=== PATIENT | female | born 1950 | race Caucasian/White ===

== ENCOUNTER → 2016-07-18 | Outpatient (CLI) | payer BC ==
[~2016-07-18] MED LIST: ALPR0.25 PO; ALUMSUS21 PO; CLR10 PO; FLUT0.15 NAE; INDA1TAB3 PO; LOSA50TA6 PO; OMEP40CA41 PO; RANI300T2 PO; ZCR40 PO
[2016-07-18 12:05] LABS: BASO % 0.4 %; BASO ABS # 0.02 K/uL (0-0.2); COMPLETE YES; EOS % 2.2 %; HEMATOCRIT 40.1 % (37-47); IG% 0.4 %; LYMPH % 25.5 %; LYMPH ABS # 1.39 K/uL (1.2-3.4); MEAN CELL VOLUME 87.2 fL (80-100); MEAN CORPUSCULAR HEMOGLOBIN 28.7 pg (25-34); MEAN CORPUSCULAR HGB CONC 32.9 g/dl (32-36); MEAN PLATELET VOLUME 9.8 fL (7.4-10.4); MONO % 3.9 %; NEUT % 67.6 %; PLATELET COUNT 231 K/uL (130-400); WHITE BLOOD COUNT 5.45 K/uL (4.8-10.8)
[2016-07-18 12:21] LABS: ALT/SGPT 31 U/L (12-78); AST/SGOT 27 U/L (15-37); BLOOD UREA NITROGEN 21 mg/dl (7-18); BUN/CREATININE RATIO 21.4 (10-20); CALCIUM 8.9 mg/dl (8.5-10.1); CARBON DIOXIDE 31 mmol/L (21-32); CHLORIDE 107 mmol/L (98-107); CHOLESTEROL 159 mg/dl (0-200); GLUCOSE 87 mg/dl (70-99); POTASSIUM 3.7 mmol/L (3.5-5.1); SODIUM 143 mmol/L (136-145)
[2016-07-18 12:23] LABS: CHOLESTEROL/HDL RATIO 3.2; HDL CHOLESTEROL 50 mg/dl; LDL CHOLESTEROL CALCULATED 79 mg/dl; TRIGLYCERIDES 149 mg/dl (0-150); VERY LOW DENSITY LIPOPROT CALC 30 mg/dl
[2016-07-18 13:08] LABS: ESTIMATED AVERAGE GLUCOSE 117 mg/dl; HA1C FLAG Normal (Normal)
== END | disposition home or self-care (01) ==
LOC: C.LAB1850 10:20
PROVIDERS: ATTEND Physician Assistant
DX: Z11.59 Encounter for screening for other viral diseases (principal); E78.00 Pure hypercholesterolemia, unspecified; R73.9 Hyperglycemia, unspecified

== ENCOUNTER → 2016-12-07 | Outpatient (CLI) | payer BC ==
--- NOTE | 2016-12-07 14:05 | MAMMOGRAPHY REPORT ---
BILATERAL DIGITAL SCREENING MAMMOGRAM WITH CAD: 12/07/2016 CLINICAL HISTORY: Routine screening. TECHNIQUE: Current study was also evaluated with a Computer Aided Detection (CAD) system. Bilateral CC and MLO views were obtained. COMPARISON: Comparison is made to exams dated: 12/07/2015 mammogram, 12/03/2014 mammogram, 11/29/2012 ma mmogram, 12/02/2013 mammogram, 11/29/2011 mammogram - [facility], and 01/28/2007. BREAST COMPOSITION: There are scattered areas of fibroglandular density in both breasts. FINDINGS: No suspicious masses, calcifications, or areas of architectural distortion are noted in ei ther breast. There has been no significant interval change compared to prior exams. IMPRESSION: ACR BI-RADS CATEGORY 1: NEGATIVE There is no mammographic evidence of malignancy. A 1 year screening mammogram is recommended. The pa tient will receive written notification of the results. Approximately 10% of breast cancers are not detected with mammography. A negative mammographic report should not delay biopsy if a clinically suggestive mass is present. Unique Gibbons M.D. ah/:12/07/2016 10:53:39 Medical Services Manager: Hair BARROS(R)(M), [facility] letter sent: Normal 1/2 BI-RADS Code: ACR BI-RADS Category 1: Negative
== END | disposition home or self-care (01) ==
LOC: C.MAMM 10:19
PROVIDERS: ATTEND Obstetrics & Gynecology
DX: Z12.31 Encounter for screening mammogram for malignant neoplasm of breast (principal)

== ENCOUNTER → 2017-01-11 | Outpatient (CLI) | payer BC ==
[2017-01-11 09:42] LABS: BASO % 0.6 %; BASO ABS # 0.03 K/uL (0-0.2); COMPLETE YES; EOS % 4.8 %; HEMATOCRIT 39.2 % (37-47); IG% 0.2 %; LYMPH % 23.6 %; LYMPH ABS # 1.18 K/uL (1.2-3.4); MEAN CELL VOLUME 90.7 fL (80-100); MEAN CORPUSCULAR HEMOGLOBIN 29.2 pg (25-34); MEAN CORPUSCULAR HGB CONC 32.1 g/dl (32-36); MEAN PLATELET VOLUME 9.7 fL (7.4-10.4); MONO % 9.2 %; NEUT % 61.6 %; PLATELET COUNT 222 K/uL (130-400); RED BLOOD COUNT 4.32 M/uL (4.2-5.4); WHITE BLOOD COUNT 5.01 K/uL (4.8-10.8)
[2017-01-11 09:51] LABS: ESTIMATED AVERAGE GLUCOSE 114 mg/dl; HA1C FLAG Normal (Normal)
[2017-01-11 10:17] LABS: ALT/SGPT 24 U/L (12-78); BLOOD UREA NITROGEN 19 mg/dl (7-18); BUN/CREATININE RATIO 21.1 (10-20); CARBON DIOXIDE 30 mmol/L (21-32); CHLORIDE 107 mmol/L (98-107); CHOLESTEROL 148 mg/dl (0-200); GLUCOSE 86 mg/dl (70-99); POTASSIUM 3.4 mmol/L (3.5-5.1); SODIUM 143 mmol/L (136-145); TRIGLYCERIDES 125 mg/dl (0-150); VERY LOW DENSITY LIPOPROT CALC 25 mg/dl
[2017-01-11 10:27] LABS: AST/SGOT 19 U/L (15-37); CHOLESTEROL/HDL RATIO 3.2; HDL CHOLESTEROL 46 mg/dl; LDL CHOLESTEROL CALCULATED 77 mg/dl
== END | disposition home or self-care (01) ==
LOC: C.LAB1850 08:48
PROVIDERS: ATTEND Physician Assistant
DX: E78.00 Pure hypercholesterolemia, unspecified (principal); R73.9 Hyperglycemia, unspecified

== ENCOUNTER → 2017-04-03 | Outpatient (CLI) | payer BC | END | disposition home or self-care (01) | LOC: C.MAMM 08:52 | PROVIDERS: ATTEND Obstetrics & Gynecology | DX: Z13.820 Encounter for screening for osteoporosis (principal) ==

== ENCOUNTER → 2017-07-26 | Outpatient (CLI) | payer BC ==
[2017-07-26 12:20] LABS: BASO % 0.3 %; BASO ABS # 0.02 K/uL (0-0.2); EOS ABS # 0.18 K/uL (0-0.5); HEMATOCRIT 40.2 % (37-47); HEMOGLOBIN 13.3 g/dL (12.0-16.0); IG# 0.03 K/uL (0.00-0.02); LYMPH % 22.1 %; LYMPH ABS # 1.31 K/uL (1.2-3.4); MEAN CELL VOLUME 89.1 fL (80-100); MEAN CORPUSCULAR HEMOGLOBIN 29.5 pg (25-34); MEAN CORPUSCULAR HGB CONC 33.1 g/dl (32-36); MONO % 4.9 %; MONO ABS # 0.29 K/uL (0.11-0.59); NEUT % 69.2 %; NEUT ABS # 4.09 K/uL (1.4-6.5); PLATELET COUNT 227 K/uL (130-400); RED CELL DISTRIBUTION WIDTH CV 14.3 % (11.5-14.5); WHITE BLOOD COUNT 5.92 K/uL (4.8-10.8)
[2017-07-26 12:29] LABS: HEMOGLOBIN A1C 5.6 % (4.5-5.6)
[2017-07-26 12:42] LABS: ALT/SGPT 29 U/L (12-78); AST/SGOT 21 U/L (15-37); BLOOD UREA NITROGEN 22 mg/dl (7-18); CALCIUM 9.1 mg/dl (8.5-10.1); CARBON DIOXIDE 29 mmol/L (21-32); CHOLESTEROL 178 mg/dl (0-200); CREATININE 1.08 mg/dl (0.60-1.20); GLUCOSE 95 mg/dl (70-99); POTASSIUM 3.6 mmol/L (3.5-5.1); SODIUM 141 mmol/L (136-145)
[2017-07-26 12:53] LABS: LDL CHOLESTEROL CALCULATED 97 mg/dl
== END | disposition home or self-care (01) ==
LOC: C.LAB1850 10:11
PROVIDERS: ATTEND Internal Medicine
DX: E78.00 Pure hypercholesterolemia, unspecified (principal)

== ENCOUNTER → 2017-12-11 | Outpatient (CLI) | payer BC ==
--- NOTE | 2017-12-12 13:38 | MAMMOGRAPHY REPORT ---
BILATERAL DIGITAL SCREENING MAMMOGRAM TOMOSYNTHESIS WITH CAD: 12/11/2017 CLINICAL HISTORY: Routine screening. Patient has no complaints. TECHNIQUE: The study was acquired using full field digital technology and interpreted from soft copy. Breast tomosynthesis in addition to standard 2D mammography was performed. Current study was also ev aluated with a Computer Aided Detection (CAD) system. COMPARISON: Comparison is made to exams dated: 12/07/2016 mammogram, 12/07/2015 mammogram, 12/03/2014 m ammogram, 12/02/2013 mammogram, 11/29/2012 mammogram, and 12/04/2011 mammogram - [facility] nter. BREAST COMPOSITION: There are scattered areas of fibroglandular density in both breasts. FINDINGS: The parenchymal pattern is unchanged. No developing mass, architectural distortion or cluster of susp icious microcalcifications is seen in either breast. IMPRESSION: ACR BI-RADS CATEGORY 2: BENIGN There is no mammographic evidence of malignancy. A 1 year screening mammogram is recommended.( 019) The patient will receive written notification of the results. Some breast cancers are not detected with mammography. A negative mammographic report should not elizabeth y biopsy if a clinically suggestive mass is present. Bharati Forman M.D. ay/:12/11/2017 19:05:33 Assignment Desk Editor: RT Jelena(Veronica)(M)(BD), [facility] letter sent: Normal 1/2 BI-RADS Code: ACR BI-RADS Category 2: Benign
== END | disposition home or self-care (01) ==
LOC: C.MAMM 09:52
PROVIDERS: ATTEND Internal Medicine
DX: Z12.31 Encounter for screening mammogram for malignant neoplasm of breast (principal)

== ENCOUNTER 2021-08-11 06:47 | Observation (INO) ==
--- NOTE | 2021-08-01 10:35 | PAT Medication Instructions ---
Medication Instructions Date of Service August 01, 2021 Home Medications Medication Instructions Recorded simvastatin 40 mg tablet 40 mg PO QPM #90 tab 12/16/20 losartan 50 mg tablet 50 mg PO QAM #90 tab 05/16/21 fluticasone propionate 50 mcg/actuation nasal spray,suspension 2 sprays INTNAS DAILY PRN cholecalciferol (vitamin D3) 25 mcg (1,000 unit) chewable tablet 1,000 units PO QAM Gaviscon 1 tab PO TID cetirizine 10 mg capsule 10 mg PO QPM simvastatin 40 mg tablet 40 mg PO QPM losartan 50 mg tablet 50 mg PO QAM alprazolam 0.25 mg tablet 0.25 mg PO UD PRN cyanocobalamin (vitamin B-12) 1,000 mcg tablet (Vitamin B-12) 1,000 mcg PO QAM indapamide 1.25 mg tablet 1.25 mg PO QAM omeprazole 20 mg capsule,delayed release 20 - 40 mg PO UD PRN DO NOT take the morning of surgery cholecalciferol (vitamin D3) 25 mcg (1,000 unit) chewable tablet 1,000 units PO QAM Gaviscon 1 tab PO TID losartan 50 mg tablet 50 mg PO QAM cyanocobalamin (vitamin B-12) 1,000 mcg tablet (Vitamin B-12) 1,000 mcg PO QAM indapamide 1.25 mg tablet 1.25 mg PO QAM Take morning of surgery With a small sip of water, OTHERWISE NOTHING TO EAT OR DRINK AFTER MIDNIGHT: fluticasone propionate 50 mcg/actuation nasal spray,suspension 2 sprays INTNAS DAILY PRN (if needed) alprazolam 0.25 mg tablet 0.25 mg PO UD PRN (if needed) omeprazole 20 mg capsule,delayed release 20 - 40 mg PO UD PRN (if needed) Take evening before surgery fluticasone propionate 50 mcg/actuation nasal spray,suspension 2 sprays INTNAS DAILY PRN (if needed) Gaviscon 1 tab PO TID cetirizine 10 mg capsule 10 mg PO QPM simvastatin 40 mg tablet 40 mg PO QPM alprazolam 0.25 mg tablet 0.25 mg PO UD PRN (if needed) omeprazole 20 mg capsule,delayed release 20 - 40 mg PO UD PRN (if needed) Other Notes If you have any questions please call us at [phone] or [phone] or [phone] or [phone]
--- NOTE | 2021-08-02 14:06 | Anesthesiology Consultation ---
Date of Service August 02, 2021 Assessment & Plan (1) Encounter for pre-operative examination: Chart Review Chart Review: Acceptable Risk for Surgery (pending surgeon ordered PCP clearance and preop Covid testing results ) and Patient seen in Pre Admission Testing -Awaiting final PCP clearance - seen 07/22/21 (note still not signed off- possibly waiting for preop testing) Pt with egg allergy Per PAT appt on 08/02/21, patient denies any recent travel or large group activities. No known Covid positive exposures or Covid related symptoms. No known Covid infection in the past 90 days. Pt is vaccinated for Covid. Preop Covid testing scheduled 08/08/21 = will await results. Educated on importance of self quarantining, social distancing and wearing mask in public for the patient one week prior to surgery and after Covid testing done Teaching & Discussion Pre-Anesthesia Teaching/Discussion Notes: Instructed NPO after midnight before surgery,except medications with 15 cc of water. Medication instructions provided according to the [facility] guidelines. History Surgery Operation Date: 08/11/21 08:50 Proposed Procedures p RIght Total Hip Arthroplasty - Michael Zamudio MD Height/Weight Height: 5 ft 6 in Weight: 93.6 kg Allergies Allergy/AdvReac Type Severity Reaction Status Date / Time latex Allergy Unknown RASH Verified 08/02/21 13:55 Sulfa (Sulfonamide Allergy Unknown RASH Verified 08/01/21 09:38 Antibiotics) egg AdvReac Severe TINGLING Verified 08/01/21 09:38 MOUTH, SEVERE NAUSEA, stomach cramps banana AdvReac Unknown Nausea Verified 08/01/21 09:38 broccoli AdvReac Unknown GI SYMPTOMS Verified 08/01/21 09:38 cat dander AdvReac Unknown CONGESTION Verified 08/01/21 09:38 coffee (Coffea arabica) AdvReac Unknown Nausea Verified 08/01/21 09:38 shellfish derived AdvReac Unknown SOME NAUSEA Verified 08/01/21 09:38 Medications Home Medications Medication Instructions Recorded Confirmed Last Taken fluticasone propionate 50 2 sprays INTNAS DAILY PRN 01/03/19 08/01/21 02/21/19 mcg/actuation nasal spray,suspension cholecalciferol (vitamin D3) 25 1,000 units PO QAM 04/10/19 08/01/21 Unknown mcg (1,000 unit) chewable tablet Al hyd-Mg tr-alg ac-sod bicarb 80 1 tab PO TID tab 08/20/19 08/01/21 Unknown mg-14.2 mg chewable tablet (Gaviscon) cetirizine 10 mg capsule 10 mg PO QPM cap 08/29/19 08/01/21 Unknown simvastatin 40 mg tablet 40 mg PO QPM #90 tab 12/16/20 08/01/21 Unknown losartan 50 mg tablet 50 mg PO QAM #90 tab 05/16/21 08/01/21 Unknown alprazolam 0.25 mg tablet 0.25 mg PO UD PRN 08/01/21 08/01/21 Unknown cyanocobalamin (vitamin B-12) 1,000 mcg PO QAM 08/01/21 08/01/21 Unknown 1,000 mcg tablet (Vitamin B-12) omeprazole 20 mg capsule,delayed 20 - 40 mg PO UD PRN 08/01/21 08/01/21 Unknown release indapamide 1.25 mg tablet 1.25 mg PO QAM #90 tab 08/02/21 Unknown Past Medical History Medical History 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 12 Claustrophobia Can tolerate oxygen mask GERD (gastroesophageal reflux disease) Well controlled and stable History of anesthesia reaction - WITH C/S- WAS DONE UNDER GA - NO ISSUES WITH SURGERY- IN RECOVERY AREA- COULD HEAR EVERYTHING GOING ON AND COULDN'T MOVE - WAS HYPERVENTILATING -HAS HAD SUBSEQUENT SURGERIES WITHOUT ISSUES HTN (hypertension) Hypercholesteremia Left knee pain Knee has given out in the past - does have brace - patient currently doing PT - patient will inform surgeon's office Presence of pessary Pt can remove and replace pessary on her own- patient will remove pessary for surgery. Seasonal allergies Snoring HX SLEEP STUDY, (AROUND 2018) -RESULTS UNKNOWN Varicose veins of both lower extremities S/p vein ligation Exercise / Class Metabolic Activity II 4-5 Yardwork/Stairs/Walk up hill (ONE FLIGHT OF STAIRS - NO CHEST PAIN OR SOB ) Past Family History Family History Brother Family history of diabetes mellitus Grandmother (Maternal) Family history of diabetes mellitus Past Surgical History Surgical History History of section X 1 History of colonoscopy History of dilatation and curettage History of esophagogastroduodenoscopy (EGD) History of ligation of vein LEFT History of tooth extraction Past Anesthesia History No Hx of Anesthesia Complications (with exception to post op (see PMH)) and No Family Hx of Anesthesia Complications History of PONV No Hx of PONV and No Hx of Motion Sickness Social History Smoking Status: Never smoker Do You Dip or Chew Tobacco: No Hx Alcohol Use: No Hx Substance Use: No substance use type: does not use Review of Systems Occ palpitations - only with anxiety - improved with yoga and mediation Occ snoring- no recent issues - no witnessed apnea. Patient denies chest pain, shortness of breath, dyspnea on exertion, cough, wheezing. No hx of seizures, stroke, IN. No hx of blood clots or blood transfusions Physical Exam Vital Signs VITALS BP 109/74 P 86 TEMP 97.8 SP02 95% RESP 16 Constitutional no acute distress ENMT Mouth: no TMJ clicking Thyromental Distance: < 3.5 Finger Breadths (3.0) Mallampati Class: I Top teeth have veneers Permanent bridges and implants on side teeth Neck neck extension not limited Respiratory normal respiratory effort; no respiratory distress Auscultation: lungs clear to auscultation bilaterally; no wheezes Cardiovascular Rate/Rhythm: regular rate and regular rhythm Heart Sounds: no murmur Vessels: no carotid bruit Musculoskeletal Spine: no pain with cervical ROM Extremities: extremities normal to inspection Psychiatric Orientation: alert Lab Results Anesthesia Preop Results Results Anesthesia Widget: WBC 7.73 K/uL (4.8-10.8) 08/02/21 Hgb 13.3 g/dL (12.0-16.0) 08/02/21 Hct 40.8 % (37-47) 08/02/21 Plt 257 K/uL (130-400) 08/02/21 Na 142 mmol/L (136-145) 08/02/21 K 3.2 mmol/L (3.5-5.1) L 08/02/21 Cl 104 mmol/L (98-107) 08/02/21 CO2 31 mmol/L (21-32) 08/02/21 BUN 16 mg/dl (6-23) 08/02/21 Creat 1.11 mg/dl (0.6-1.2) 08/02/21 Glucose Level 131 mg/dl (70-99(Fasting)) H 08/02/21 PT 10.9 Seconds (9.0-12.0) 08/02/21 PTT 29.7 Seconds (21.0-31.0) 08/02/21 INR 1.0 (0.9-1.1) 08/02/21 HA1c 5.8 % (4.5-5.6) H 08/02/21 Urine Color Yellow 08/03/21 Urine Appearance Clear (Clear) 08/03/21 Urine pH 6.0 (4.5-7.5) 08/03/21 Urine Specific Wilmot 1.009 (1.000-1.030) 08/03/21 Urine Protein Negative (Negative) 08/03/21 Urine Glucose (UA) Negative (Negative) 08/03/21 Urine Ketones Negative (Negative) 08/03/21 Urine Blood Negative (Negative) 08/03/21 Urine Nitrite Negative (Negative) 08/03/21 Urine Bilirubin Negative (Negative) 08/03/21 Urine Urobilinogen Negative (Negative) 08/03/21 Urine Leukocyte Esterase 2+ (Negative) H 08/03/21 Urine WBC (Auto) 5-10 /hpf (0-5) H 08/03/21 Urine RBC (Auto) 0-4 /hpf (0-4) 08/03/21 Urine Hyaline Casts (Auto) 1-5 /lpf (0-5) 08/03/21 Urine Epithelial Cells (Auto) 20-30 /lpf (0-5) H 08/03/21 Urine Bacteria (Auto) Negative (Negative) 08/03/21 Blood Type A Positive 08/02/21 Antibody Screen NEGATIVE 08/02/21 Testing Electrocardiogram Date: 08/02/21 Findings: + NSR @ (76bpm ) Normal EKG per cardio Other Testing Carotid duplex 05/26/2021 = <50% stenosis in the right and left internal carotid arteries. Antegrade flow bilateral vertebral arteries.
--- NOTE | 2021-08-03 15:50 | History & Physical Report ---
Date of Service August 03, 2021 Assessment & Plan (1) Osteoarthritis of right hip: Plan: PRE-OP Diagnosis: Right hip osteoarthritis Planned Procedure: Right total hip arthroplasty Plan: Patient is scheduled to undergo this procedure at the [facility] with a 23-hour observation admission on July with Dr. Michael Kingsley off. Risks and complications of the procedure such as: Infection, bleeding, pain, scarring, nerve blood vessel damage, weakness, wound problems, stiffness, incomplete relief of symptoms, hardware failure, hardware loosening, wear, fracture, tendon or ligament injury, dislocation, leg length inequality, blood clots, embolism, heart attack, stroke and were explained to the patient at her visit with Dr. Zamudio on July 19 and informed consent form the procedure was obtained. Patient also understands risks of proceeding with surgical intervention during the COVID-19 pandemic. Currently she is asymptomatic and understands that she will need tested prior to her surgery. Patient states that she saw her primary care provider Dr. Saunders's Physician gift shop assistant on July 22 was cleared for the surgery. She also states that she met with anesthesia earlier today and while at the hospital she ob tained a CBC with differential, complete metabolic panel, PT/INR, blood type and screen, urinalysis, urine culture and sensitivity, EKG, hemoglobin A1c and a nasal culture for MRSA. During today's visit we discussed total hip precautions and reviewed the total hip packet. I provided the patient with paperwork to obtain a handicap placard for her vehicle. She states that she does have a walker, shower chair, raised toilet seat and a hip kit. She will bring her walker with her on the day of the procedure. We also discussed lectures offered by [facility] in regards to joint replacement surgery. Patient states she plans on partaking in the one on the sunday of this month. We also discussed antibiotic use prior to dental procedures. Advised her that she will be discharged from the hospital with a prescription for her narcotic pain medication and an anti-inflammatory. We would like her to be on 81 mg aspirin twice daily for the first 30 days postoperatively for blood clot prevention. Patient states she plans on doing in-home physical therapy for the first 2 weeks postoperatively with [facility] home [facility]. She is scheduled for her 2-week postoperative follow-up visit with Ted Guiterrez PA-C on August 26 at 8:45 AM. History of Present Illness Chief Complaint: Chief Complaint: Right hip pain Primary Care Provider: Vita Saunders MD History of Present Illness (including history relevant to procedure): This 70-year-old female presents the clinic today for preoperative history and physical. Patient states that her hip has been bothering her for approximately 1 year. She had a fall about a year ago that seemed to be an inciting event. It has worsened since that time. It bothers her walking, especially uphill. She has tried physical therapy. She has worked with a chiropractor. She has tried cold and heat as well as nonsteroidal antiinflammatories. These have all failed to give her adequate relief. She is now interested in surgical management. Review Of Systems: A 12 point review of systems is performed is unremarkable except for those things stated in the HPI and past medical history. Past Medical History: Problems: Left knee DJD Left knee pain Closed fracture of metatarsal of left foot Vitamin D deficiency Incomplete uterovaginal prolapse Reflux Rash Hypertension Back pain Seasonal allergies Hyperlipidemia History of foot fracture Anxiety Hiatal hernia Obesity Procedure History Procedure Procedure Date Comments Colonoscopy 02/2019 Endovenous laser ablation of varicose vein of lower limb 12/2018 Shave biopsy and cauterization of skin 01/08/2018 Endoscopy 10/2014 D&C - Dilatation and curettage 2000 - fibroids delivery 1983 Allergies and Sensitivities: bananas(stomach cramps) eggs(stomach cramps) eggs(diarrhea) eggs(emesis) Allergy Not found in Search(broccoli, coffee,) Allergy Not found in Search(stomach cramps) Cats Ragweed(sinus symptoms) sulfa drugs(Rash) Family history: Heart disease, myocardial infarction, diabetes, stroke, cancer and hypertension Social history: completely unremarkable Current Home Meds: (Last Updated 08/02 15:07) ALPRAZolam (Xanax 0.5 mg oral tablet) 0.5 mg PO Daily PRN: as needed for anxiety for dentist aloe polysaccharides-iodoquinol topical (Aloquin 1.25%-1% topical gel) 1 appl topical qid aluminum hydroxide-magnesium trisilicate (Gaviscon) 2 tab PO with meals cetirizine (ZyrTEC 10 mg oral tablet) 10 mg PO Daily ergocalciferol (Vitamin D2 50,000 intl units (1.25 mg) oral capsule) 50,000 Int_Unit PO q7days fluticasone nasal (Flonase 50 mcg/inh nasal spray) 1 spray each nostril Daily in summer hydrocortisone topical (hydrocortisone 2.5% topical ointment) 1 appl topical bid apply to periorbital dermatitis until clear and then as needed; use for up to 10 days hydrocortisone-iodoquinol topical (hydrocortisone-iodoquinol 1%-1% topical cream) 1 appl topical Daily apply to dermatitis on the chest and abdomen until clear and then use as needed indapamide (indapamide 1.25 mg oral tablet) 1.25 mg PO Daily losartan (losartan 50 mg oral tablet) 50 mg PO Daily omeprazole (PriLOSEC 20 mg oral delayed release capsule) 20 mg PO Daily simvastatin (simvastatin 40 mg oral tablet) 40 mg PO qhs sodium hyaluronate (Euflexxa 10 mg/mL intra-articular solution) 20 mg intra- articular q7days m17.12 left knee AO triamcinolone topical (triamcinolone 0.1% topical cream) 1 appl topical tid to aa on left arm Allergies Allergy/AdvReac Type Severity Reaction Status Date / Time latex Allergy Unknown RASH Verified 08/02/21 13:55 Sulfa (Sulfonamide Allergy Unknown RASH Verified 08/01/21 09:38 Antibiotics) egg AdvReac Severe TINGLING Verified 08/01/21 09:38 MOUTH, SEVERE NAUSEA, stomach cramps banana AdvReac Unknown Nausea Verified 08/01/21 09:38 broccoli AdvReac Unknown GI SYMPTOMS Verified 08/01/21 09:38 cat dander AdvReac Unknown CONGESTION Verified 08/01/21 09:38 coffee (Coffea arabica) AdvReac Unknown Nausea Verified 08/01/21 09:38 shellfish derived AdvReac Unknown SOME NAUSEA Verified 08/01/21 09:38 Home Medications Medication Instructions Recorded Confirmed Type fluticasone propionate 50 2 sprays INTNAS DAILY PRN 01/03/19 08/01/21 History mcg/actuation nasal spray,suspension cholecalciferol (vitamin D3) 25 1,000 units PO QAM 04/10/19 08/01/21 History mcg (1,000 unit) chewable tablet Al hyd-Mg tr-alg ac-sod bicarb 80 1 tab PO TID tab 08/20/19 08/01/21 History mg-14.2 mg chewable tablet (Gaviscon) cetirizine 10 mg capsule 10 mg PO QPM cap 08/29/19 08/01/21 History simvastatin 40 mg tablet 40 mg PO QPM #90 tab 12/16/20 08/01/21 Rx losartan 50 mg tablet 50 mg PO QAM #90 tab 05/16/21 08/01/21 Rx alprazolam 0.25 mg tablet 0.25 mg PO UD PRN 08/01/21 08/01/21 History cyanocobalamin (vitamin B-12) 1,000 mcg PO QAM 08/01/21 08/01/21 History 1,000 mcg tablet (Vitamin B-12) omeprazole 20 mg capsule,delayed 20 - 40 mg PO UD PRN 08/01/21 08/01/21 History release indapamide 1.25 mg tablet 1.25 mg PO QAM #90 tab 08/02/21 Rx 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 12 Claustrophobia Can tolerate oxygen mask GERD (gastroesophageal reflux disease) Well controlled and stable History of anesthesia reaction - WITH C/S- WAS DONE UNDER GA - NO ISSUES WITH SURGERY- IN RECOVERY AREA- COULD HEAR EVERYTHING GOING ON AND COULDN'T MOVE - WAS HYPERVENTILATING -HAS HAD SUBSEQUENT SURGERIES WITHOUT ISSUES HTN (hypertension) Hypercholesteremia Left knee pain Knee has given out in the past - does have brace - patient currently doing PT - patient will inform surgeon's office Presence of pessary Pt can remove and replace pessary on her own- patient will remove pessary for surgery. Seasonal allergies Snoring HX SLEEP STUDY, (AROUND 2019) -RESULTS UNKNOWN Varicose veins of both lower extremities S/p vein ligation Surgical History History of section X 1 History of colonoscopy History of dilatation and curettage History of esophagogastroduodenoscopy (EGD) History of ligation of vein LEFT History of tooth extraction Family History Brother Family history of diabetes mellitus Grandmother (Maternal) Family history of diabetes mellitus Social History Smoking Status: Never smoker Second Hand Exposure: Yes ( A CHILD); Hx Alcohol Use: No Hx Substance Use: No Preferred Language: Bolivian Communication Ability: Effective Tipple Oiler Required: No Beliefs That Will Affect Care: None and Anabaptist Anabaptist Beliefs: JAINISM Current Living Situation: Spouse Feels Safe at Home: Yes Assistive Devices: Brace/Splint/Immobilizer Review of Systems All systems reviewed & are unremarkable except as noted in Subjective Physical Exam Physical Exam: Physical Exam: (relevant to the procedure, including heart and lung evaluation) General: Alert and oriented x3 with proper grooming and hygiene Eyes: Pupils are equal and reactive to light with accommodation. Extraocular movements are intact Throat: Deferred due to COVID-19 precautions Cardiac: Regular rate and rhythm with no murmurs or gallops appreciated Lungs: Clear to auscultation throughout with no wheezing, rales or rhonchi Abdomen: Obese, nondistended, nontender with normal active bowel sounds Extremities: Right hip; flexion Is limited to 105 degrees, external rotation 40 degrees, and internal rotation of -5 degrees. Positive Stinchfield test. Positive logroll test. Tenderness to palpation over the groin. Patient is neurovascularly intact but does walk with a slight antalgic gait. Neuro: Cranial nerves II through XII are intact no motor or sensory deficit Skin: Normal in appearance no open skin areas or discharge Results & Data ([facility]) Diagnostic Findings Studies (relevant to the procedure): X-rays done recently are reviewed. These demonstrate [id number] arthritis of the right hip with subchondral sclerosis and cyst formation.
[~2021-08-11 06:47] MED LIST changes: +ACETAMINOPHEN 500 MG TAB PO SCH; -ALPR0.25 PO; -ALUMSUS21 PO; +BUPIVACAINE 0.5 % 5 MG/1 ML PF 10ML VIAL ONE; -CLR10 PO; +FAMOTIDINE 20 MG TAB PO SCH; -FLUT0.15 NAE; -INDA1TAB3 PO; -LOSA50TA6 PO; +LR 500ML BOLUS, THEN 15ML/HR IV SCH; +LR 60ML/HR IV SCH; -OMEP40CA41 PO; -RANI300T2 PO; +ROPIVACAINE 0.5% HCL/PF 150 MG, BUPIVACAINE 0.75% MPF 20 ML, EPINEPHrine 0.15 MG, Ketor... INFIL SCH; +Scopolamine 1 MG TDSY TD SCH; +TRANEXAMIC ACID 1,000 MG **IV Intra-op IV SCH; +TRANEXAMIC ACID 1,000 MG **IV Pre-op IV SCH; -ZCR40 PO; +ceFAZolin 2000MG 2,000 MG/15 ML SYR IV SCH; +dexAMETHasone 4 MG TAB PO SCH; +traMADol HCL 50 MG TABLET PO SCH
[2021-08-11] MEDS ORDERED: PHENYLEPHRINE 100MCG/ML 5ML SYR ONE (07:47)
[2021-08-11] MEDS ORDERED: ePHEDrine sulfate 50 MG/ML SYR ONE (07:47)
[2021-08-11] MEDS ORDERED: MIDAZOLAM HCL 1 MG/ML 2ML VIAL ONE (07:47)
--- NOTE | 2021-08-11 08:32 | History & Physical Bridge Note ---
Date of Service August 11, 2021 History & Physical Bridge Note I have examined the patient, reviewed the History & Physical and in the interval since the performance of the History & Physical I have noted the following changes of clinical significance: no changes noted
[2021-08-11] MEDS ORDERED: ORTHO JOINT ANESTHETIC ONE (08:57)
[2021-08-11] MEDS ORDERED: PROMETHAZINE HCL 12.5 MG in SODIUM CHLORIDE 0.9% 50 ML IV PRN (10:07)
[2021-08-11] MEDS ORDERED: fentaNYL citrate 100 MCG/2 ML VIAL IV PRN (10:07)
[2021-08-11] MEDS ORDERED: HYDROmorphone INJ 1 MG/ML SYRINGE IV PRN (10:07)
[2021-08-11] MEDS ORDERED: ePHEDrine sulfate 50 MG/ML AMP IV PRN (10:07)
[2021-08-11] MEDS ORDERED: ONDANSETRON INJ 2 MG/ML 2 ML VIAL IV PRN ×2 (10:07→11:20)
[2021-08-11] MEDS ORDERED: NALOXONE HCL 0.4 MG/1 ML VIAL/CARP IV PRN ×2 (10:07→11:20)
[2021-08-11] MEDS ORDERED: ATROPINE SULFATE 0.1 MG/ML 10ML SYR IV PRN (10:07)
[2021-08-11] MEDS ORDERED: FLUMAZENIL 0.1 MG/1 ML 10 ML VIAL IV PRN (10:07)
--- NOTE | 2021-08-11 10:55 | Operative Report ---
Post Operative Report Pre & Post Diagnosis Operation Date: 08/11/21 09:10 Pre-Op Diagnosis: Unilateral Primary Osteoarthritis of Right Hip Post-Op Diagnosis: Unilateral Primary Osteoarthritis of Right Hip I identified the patient and participated in the time-out.: Yes Procedure Operation Date: 08/11/21 09:10 Actual Procedures p Right Total Hip Arthroplasty(Right) - Michael Zamudio MD Surgeon Michael Zamudio MD Skate Shop Attendant Jaimee Padilla MD and EDWIN Middleton PA-C Estimated Blood Loss 100 Findings Consistent with Post-Op Diagnosis Specimens Right femoral head Complications None Indications 70-year-old female with right hip arthritis refractory to conservative management. X-rays demonstrate iqpa-rw-aglo disease with a coxa profunda hip. I had a long discussion with her about the risks and benefits of surgery, alternatives, and expected outcomes. After reviewing all these she elected to proceed with surgery. All questions were answered. Informed consent was signed. Description of Procedure Patient was identified in the preoperative holding area and the surgical site, right hip, was marked. A spinal anesthetic was placed, then the patient was brought back to the main operating room, placed in the operating table and moved into the lateral decubitus position. Axillary roll was placed. All bony prominences were padded. Perioperative antibiotics and tranexamic acid 1 gram IV were administered. Operative extremity was prepped and draped in the normal sterile fashion. Prior to incision a multidisciplinary timeout was called. All in the room were in agreement. We began by making an incision for a posterior approach to the hip. We dissected down through subcutaneous tissues to the level of the fascia. She had a thick fat layer, about 3 inches, between the skin and the fascia, so we had to use the Charnley to help retract the fat layer. The fascia was incised in line with the incision. Charnley bow was then placed on the gluteus niki muscle, taking great care to ensure the sciatic nerve was not under the retractor.. The trochanteric bursa was excised. The piriformis and short external rotators were dissected off the posterior aspect of the hip. A box cut was made in the capsule. The femoral head was dislocated. The femoral neck cut was made at our preoperative template. The acetabulum was then exposed. The labrum was sharply excised. Contents of the cotyloid fossa were removed wi th electrocautery. We then began reaming at a size 8 mm less than our preoperative template. We reamed up by 1 [address] the way up to a size 52 mm cup. This gave us good bleeding cancellus bone circumferentially. The acetabulum was then irrigated out and dried. The real Patterson Gription cup was then impacted down into position with 45 degrees of lateral opening and 25 degrees of anteversion. A single cancellous bone screw was placed up into the ilium. Excellent fixation was obtained. An Altrx polyethylene liner for a 32 mm femoral head was then impacted into the shell. The locking mechanism was checked to ensure that it had engaged which it had. Next we turned our attention to the femur. The lateral neck was removed with a box osteotome. Intramedullary guide was used followed by the lateralizing reamer. We then reamed up to a size 4 [place] stem. We then broached all the way up to a size 3, which was our pre-operative template. We began trialing with a standard offset neck and a +5 head. Hip was reduced. Leg lengths were symmetric. The hip was stable in extension and external rotation, and stable in the sleeper position. At 90 degrees of hip flexion the hip could be internally rotated 75 degrees before levering out of the cup. I was very happy with the stability exam. Therefore the hip was dislocated and the femoral trial was removed. The femoral canal was irrigated and dried. The real size 3 standard offset [place] femoral stem was opened up. This was impacted down into position. It sat at the same level as the femoral trial. Therefore the 32 mm ceramic femoral head with a +5 mm offset was opened up and gently impacted down onto the trunnion. The hip was atraumatically reduced. Another 1 gram of IV tranexamic acid was started prior to closure. The wound was irrigated out with sterile Betadine solution. The periarticular injection cocktail was then placed. The short external rotators, piriformis, and posterior capsule were repaired through drill holes in the greater trochanter using #2 Vicryl. The fascia was run with a looped #1 PDS. The subcutaneous layer was closed with #1 PDS in 2 layers. The dermal layer was closed with 2-0 Vicryl. Zip line was used for the skin followed by a Silverlon dressing. A compressive dressing was then placed. The patient was then rolled supine. Leg lengths were rechecked and were symmetric. An abduction pillow was placed. Sedation was lifted and the patient was transferred to recovery room in stable condition. Summary of implants: Depuy Patterson Gription Acetabular Shell Sector Cup, 52 mm outer diameter Patterson Cancellous bone screw, 6.5 x 30 mm Patterson Altrx Polyethylene Acetabular Liner, Neutral, with a 32 mm inner diameter DePuy [place] Femoral stem with Por[place]oat, 12/14 taper, size 3 standard offset 32 mm ceramic femoral head with +5 offset Postoperative course: Patient will be admitted to the hospital from the recovery room. Patient will be weightbearing as tolerated with posterior hip precautions. Aspirin for DVT prophylaxis I attest to the content of the Intraoperative Record and any orders documented therein. Any exceptions are noted below.
[2021-08-11] MEDS ORDERED: PROPOFOL IV EMULSION 10 MG/ML 20 ML VIAL IV ONE (10:57)
[2021-08-11] MEDS ORDERED: LIDOCAINE 2% 2 ML VIAL/AMP(20MG/ML) INFIL ONE (10:58)
--- NOTE | 2021-08-11 11:16 | Operative Report ---
Post Operative Report Pre & Post Diagnosis Operation Date: 08/11/21 09:10 Pre-Op Diagnosis: Unilateral Primary Osteoarthritis of Right Hip Post-Op Diagnosis: Unilateral Primary Osteoarthritis of Right Hip I identified the patient and participated in the time-out.: Yes Procedure Operation Date: 08/11/21 09:10 Actual Procedures p Right Total Hip Arthroplasty(Right) - Michael Zamudio MD Surgeon Olegario Zamudio MD Generator Operator Jaimee Padilla MD and EDWIN Middleton PA-C Estimated Blood Loss 100 Findings Consistent with Post-Op Diagnosis Consistent with post op diagnosis. Specimens No specimens Description of Procedure I participated in prepping dressing and assisted Dr. Zamudio during the procedure. Please see Dr. Zamudio note. I attest to the content of the Intraoperative Record and any orders documented therein. Any exceptions are noted below. Supervising Physician Co-Signing Physician Notes Dr. Zamudio
[2021-08-11] MEDS ORDERED: ALUMINUM/MAGNESIUM SUSP 30 ML UDC PO PRN (11:20)
[2021-08-11] MEDS ORDERED: oxyCODONE HCL IR 5 MG TAB (IMMEDIATE RELEASE) PO PRN (11:20)
[2021-08-11] MEDS ORDERED: diphenhydrAMINE 50 MG/ML VIAL IV PRN (11:20)
[2021-08-11] MEDS ORDERED: MAGNESIUM HYDROXIDE SUSP 30 ML UDC PO PRN (11:20)
[2021-08-11] MEDS ORDERED: METOCLOPRAMIDE HCL INJ 5 MG/ML 2 ML VIAL IV PRN (11:20)
[2021-08-11] MEDS ORDERED: bisacodyL 10 MG SUPP PR PRN (11:20)
--- NOTE | 2021-08-11 11:20 | Operative Report ---
Post Operative Report Pre & Post Diagnosis Operation Date: 08/11/21 09:10 Pre-Op Diagnosis: Unilateral Primary Osteoarthritis of Right Hip Post-Op Diagnosis: Unilateral Primary Osteoarthritis of Right Hip I identified the patient and participated in the time-out.: Yes Procedure Operation Date: 08/11/21 09:10 Actual Procedures p Right Total Hip Arthroplasty(Right) - Michael Zamudio MD Surgeon Michael Zamudio MD Cart Driver Jaimee Padilla MD and EDWIN Middleton PA-C Estimated Blood Loss 100 Findings Consistent with Post-Op Diagnosis Specimens femoral head Description of Procedure I was present during the entire case assisting with positioning, prepping, draping, wound retraction, wound closure, dressing and abduction pillow placemen t. Fellow also present. I served as an extra set of hands during the case. Please see Dr. Zamudio procedure note for specifics. I attest to the content of the Intraoperative Record and any orders documented therein. Any exceptions are noted below.
[2021-08-11] MEDS ORDERED: FLUTICASONE PROPIONATE NA SPR 16 GM BTL NAE PRN (11:24)
[2021-08-11] MEDS ORDERED: ALPRAZolam 0.25 MG TABLET PO PRN (11:24)
[2021-08-11] MEDS ORDERED: PANTOprazole 40 MG TAB PO PRN (11:24)
--- NOTE | 2021-08-11 12:08 | XRay Report ---
XR pelvis 1-2V routine HISTORY: 70 years-old Female Post Surgical right hip total joint arthroplasty COMPARISON: Pelvis radiographs 08/02/2021 TECHNIQUE: AP view of the pelvis FINDINGS: Right hip total joint arthroplasty demonstrates satisfactory alignment. No acute fracture or unexpect ed opaque foreign body. SPECT postoperative soft tissue swelling with deep tissue air. Pelvic basin p hleboliths. Mild to moderate left hip osteoarthritis. IMPRESSION: Right hip total joint arthroplasty with expected postoperative changes. ACT 112: Negative or not required by law. The above report was generated using voice recognition software. It may contain grammatical, syntax o r spelling errors. Electronically signed by: Gabriel Rehman M.D. 08/11/2021 12:06 PM
--- NOTE | 2021-08-11 12:14 | Anesthesiology Progress Note ---
Date of Service August 11, 2021 Anesthesia Post Procedure Vital Signs Vital Signs: Temp Pulse Pulse Resp BP BP Pulse Ox 08/11/21 12:10 69 16 126/81 97 08/11/21 12:00 36.4 C L 61 12 129/81 97 08/11/21 11:50 63 18 119/81 95 08/11/21 11:40 68 14 124/80 98 08/11/21 11:30 67 12 116/86 100 08/11/21 11:20 70 14 110/72 99 08/11/21 11:14 36.2 C L 73 16 106/67 99 08/11/21 07:26 36.7 C 79 20 109/69 96 Transfer of Care Handoff Completed per policy Notes Mental Status: alert / awake / arousable Patient Amnestic to Procedure: Yes Nausea / Vomiting: adequately controlled Pain: adequately controlled Airway Patency, RR, SpO2: stable & adequate BP & HR: stable & adequate Hydration State: stable & adequate Neuraxial Anesthesia: was administered and sensory block is resolving Anesthetic Complications: no major complications apparent
[2021-08-11] MEDS: SODIUM CHLORIDE 0.9% 1000ML 1,000 ML IV SCH (14:02)
[2021-08-11] MEDS: CALCIUM CARBONATE 500 MG CHEWABLE TAB PO SCH ×2 (15:15→20:20)
[2021-08-11] MEDS: KETOROLAC TROMETHAMINE 15 MG/ML VIAL IV SCH ×2 (15:15→20:20)
[2021-08-11] MEDS: Scopolamine CHECK PATCH PLACEMENT SCH (15:18)
[2021-08-11] MEDS: ACETAMINOPHEN 500 MG TAB PO SCH ×2 (15:19→22:17)
[2021-08-11] MEDS: ceFAZolin 2000MG 2,000 MG/15 ML SYR IV SCH (16:39)
[2021-08-11] MEDS: DOCUSATE SODIUM 100 MG CAP PO SCH (20:20)
[2021-08-11] MEDS ORDERED: SIMVASTATIN 40 MG TAB PO SCH (21:00)
[2021-08-11] MEDS ORDERED: CETIRIZINE HCL 10 MG TABLET PO SCH (21:00)
[2021-08-11] MEDS ORDERED: SENNA 8.6 MG TAB PO SCH (21:00)
[2021-08-12] MEDS: SODIUM CHLORIDE 0.9% 1000ML 1,000 ML IV SCH (00:42)
[2021-08-12] MEDS: Scopolamine CHECK PATCH PLACEMENT SCH ×2 (01:38→07:23)
[2021-08-12] MEDS: KETOROLAC TROMETHAMINE 15 MG/ML VIAL IV SCH ×2 (01:39→07:23)
[2021-08-12] MEDS: ceFAZolin 2000MG 2,000 MG/15 ML SYR IV SCH (02:00)
[2021-08-12] MEDS: ACETAMINOPHEN 500 MG TAB PO SCH (06:17)
[2021-08-12 06:39] LABS: Hematocrit (blood only) 34.7 % (37-47); Hemoglobin 11.6 g/dL (12.0-16.0); Immature Granulocytes # (auto) 0.03 K/uL (0.00-0.02); Immature Granulocytes % (auto) 0.2 %; Lymphocytes % (auto) 5.9 %; Mean Corpuscular Hemoglobin 28.9 pg (25-34); Mean Corpuscular Hgb Conc 33.4 g/dL (32-36); Mean Corpuscular Volume 86.3 fL (80-100); Mean Platelet Volume 9.6 fL (7.4-10.4); Monocytes # (auto) 0.77 K/uL (0.11-0.59); Monocytes % (auto) 5.7 %; Neutrophils # (auto) 11.98 K/uL (1.4-6.5); Neutrophils % (auto) 88.2 %; Platelet Count 237 K/uL (130-400); RDW Coefficient of Variation 14.7 % (11.5-14.5); RDW Standard Deviation 46.8 fL (36.4-46.3); Red Blood Count 4.02 M/uL (4.2-5.4); White Blood Count 13.58 K/uL (4.8-10.8)
[2021-08-12 07:18] LABS: BUN Creatinine Ratio 21.4 (10-20); Calcium 8.7 mg/dl (8.5-10.1); Creatinine Clr Calc Pharmacy 55.2 ml/min; Est GFR (African American) 57.6 ml/min; Est GFR (Non-African American) 49.7 ml/min; Potassium 3.7 mmol/L (3.5-5.1)
[2021-08-12] MEDS: CALCIUM CARBONATE 500 MG CHEWABLE TAB PO SCH (07:25)
[2021-08-12] MEDS: DOCUSATE SODIUM 100 MG CAP PO SCH (07:26)
[2021-08-12] MEDS ORDERED: dexAMETHasone 4 MG TAB PO SCH (08:00)
[2021-08-12] MEDS ORDERED: ASPIRIN 81 MG ECTAB PO SCH (09:00)
[2021-08-12] MEDS ORDERED: CYANOCOBALAMIN (B-12) 500 MCG TABLET PO SCH (09:00)
[2021-08-12] MEDS ORDERED: CHOLECALCIFEROL 1,000 UNITS 25 MCG TAB PO SCH (09:00)
[2021-08-12] MEDS ORDERED: LOSARTAN POTASSIUM 50 MG TAB PO SCH (09:00)
[2021-08-12] MEDS ORDERED: INDAPAMIDE 1.25 MG TAB PO SCH (09:00)
[2021-08-12] MEDS ORDERED: MULTIVITAMIN TAB PO SCH (09:00)
--- NOTE | 2021-08-12 09:49 | Orthopedic Progress Note ---
Date of Service August 12, 2021 Assessment & Plan (1) S/P total hip arthroplasty: Plan: Total hip precautions reviewed Weightbearing as tolerated with walker assistance PT/OT Ice with easy wrap DVT prophylaxis with aspirin and CLARK stockings Pain control with p.o. medication Keep Silverlon dressing in place Abduction pillow use for 6 weeks postoperatively Plan is discharge home today with in-home physical therapy starting tomorrow for the first 2 weeks postoperatively Follow-up at [facility] orthopedics as previously scheduled. With questions contact our clinic at [phone] Admission and Anticipated Discharge Date Admission Date: August 11, 2021 Subjective This 70-year-old female is day 1 status post right total hip arthroplasty. She states she is doing very well this morning. She has been able to transition from her bed to the chair and from the chair to the restroom to void. She states that she did have some slight discomfort when she rolled onto her hip to get out of bed but feels that her pain is well controlled with the p.o. pain medication she was given. Patient denies chest pain, shortness of breath, fever, chills, sweats, lethargy, numbness or tingling in her right lower extremity. She also denies nausea, vomiting, diarrhea or difficulty urinating. Review of Systems Review of Systems: All systems reviewed & are unremarkable except as noted in Subjective Physical Exam Physical Exam: Right hip: Outer dressing was removed. Silverlon is clean dry and intact. Patient is able to perform an active straight leg raise test. She is able to actively dorsi and plantarflex her foot without difficulty. Quad strength is 3 out of 5. Patient experiences no pain with logroll test. She has no discomfort with light passive internal and external hip rotation. Patient is neurovascularly intact in the right lower extremity. Results & Data ([facility]) Vital Signs (Past 12 Hours) Vital Signs Temp Pulse Resp BP Pulse Ox 08/12/21 07:29 36.5 C 65 14 120/82 93 08/12/21 04:06 36.9 C 64 17 120/81 92 08/11/21 23:19 36.7 C 69 17 109/72 92 Diagnostic Findings Laboratory Results WBC 13.58 K/uL (4.8-10.8) H 08/12/21 06:23 RBC 4.02 M/uL (4.2-5.4) L 04/22/22 06:23 Hgb 11.6 g/dL (12.0-16.0) L 08/12/21 06:23 Hct 34.7 % (37-47) L 08/12/21 06:23 MCV 86.3 fL (80-100) 08/12/21 06:23 MCH 28.9 pg (25-34) 08/12/21 06: MCHC 33.4 g/dL (32-36) 08/12/21 06:23 RDW Std Deviation 46.8 fL (36.4-46.3) H 08/12/21 06:23 RDW Coeff of Adela 14.7 % (11.5-14.5) H 08/12/21 06:23 Plt Count 237 K/uL (130-400) 08/12/21 06:23 MPV 9.6 fL (7.4-10.4) 08/12/21 06:23 Immature Gran % (Auto) 0.2 % 08/12/21 06:23 Neut % (Auto) 88.2 % 08/12/21 06:23 Lymph % (Auto) 5.9 % 08/12/21 06:23 [place] % (Auto) 5.7 % 08/12/21 06:23 Eos % (Auto) 0.0 % 08/12/21 06: Baso % (Auto) 0.0 % 08/12/21 06:23 Neut # (Auto) 11.98 K/uL (1.4-6.5) H 08/12/21 06:23 Lymph # (Auto) 0.80 K/uL (1.2-3.4) L 08/12/21 06:23 [place] # (Auto) 0.77 K/uL (0.11-0.59) H 08/12/21 06:23 Eos # (Auto) 0.00 K/uL (0-0.5) 08/12/21 06:23 Baso # (Auto) 0.00 K/uL (0-0.2) 08/12/21 06:23 Immature Gran # (Auto) 0.03 K/uL (0.00-0.02) H 08/12/21 06:23 Sodium 141 mmol/L (136-145) 08/12/21 06:23 Potassium 3.7 mmol/L (3.5-5.1) 08/12/21 06:23 Chloride 108 mmol/L (98-107) H 08/12/21 06:23 Carbon Dioxide 27 mmol/L (21-32) 08/12/21 06:23 Anion Gap 6 (3-11) 08/12/21 06:23 BUN 24 mg/dl (6-23) H 08/12/21 06:23 Creatinine 1.12 mg/dl (0.6-1.2) 08/12/21 06:23 Est Cr Clr Drug Dosing 55.2 ml/min 08/12/21 06:23 Est GFR ( Amer) 57.6 ml/min 08/12/21 06:23 Est GFR (Non-Af Amer) 49.7 ml/min 08/12/21 06:23 BUN/Creatinine Ratio 21.4 (10-20) H 08/12/21 06:23 Glucose 127 mg/dl (70-99(Fasting)) H 08/12/21 06:23 Calcium 8.7 mg/dl (8.5-10.1) 08/12/21 06:23 SARS-CoV-2, RNA, NAAT NEGATIVE (NEGATIVE) 08/11/21 Unknown Impressions Pelvis X-Ray 08/11/21 11:20 XR pelvis 1-2V routine HISTORY: 70 years-old Female Post Surgical right hip total joint arthroplasty COMPARISON: Pelvis radiographs 08/02/2021 TECHNIQUE: AP view of the pelvis FINDINGS: Right hip total joint arthroplasty demonstrates satisfactory alignment. No acute fracture or unexpected opaque foreign body. SPECT postoperative soft tissue swelling with deep tissue air. Pelvic basin phleboliths. Mild to moderate left hip osteoarthritis. IMPRESSION: Right hip total joint arthroplasty with expected postoperative changes. ACT 112: Negative or not required by law. The above report was generated using voice recognition software. It may contain grammatical, syntax or spelling errors. Electronically signed by: Gabriel Rehman M.D. 08/11/2021 12:06 PM
--- NOTE | 2021-08-12 09:54 | Discharge Summary ---
Date of Service August 12, 2021 Admission HPI Per Admitting Provider History of Present Illness (including history relevant to procedure): This 70-year-old female presents the clinic today for preoperative history and physical. Patient states that her hip has been bothering her for approximately 1 year. She had a fall about a year ago that seemed to be an inciting event. It has worsened since that time. It bothers her walking, especially uphill. She has tried physical therapy. She has worked with a chiropractor. She has tried cold and heat as well as nonsteroidal antiinflammatories. These have all failed to give her adequate relief. She is now interested in surgical man agement. Review Of Systems: A 12 point review of systems is performed is unremarkable except for those things stated in the HPI and past medical history. Past Medical History: Problems: Left knee DJD Left knee pain Closed fracture of metatarsal of left foot Vitamin D deficiency Incomplete uterovaginal prolapse Reflux Rash Hypertension Back pain Seasonal allergies Hyperlipidemia History of foot fracture Anxiety Hiatal hernia Obesity Procedure History Procedure Procedure Date Comments Colonoscopy 02/2019 Endovenous laser ablation of varicose vein of lower limb 12/2018 Shave biopsy and cauterization of skin 01/08/2018 Endoscopy 10/2014 D&C - Dilatation and curettage 2000 - fibroids delivery 1983 Allergies and Sensitivities: bananas(stomach cramps) eggs(stomach cramps) eggs(diarrhea) eggs(emesis) Allergy Not found in Search(broccoli, coffee,) Allergy Not found in Search(stomach cramps) Cats Ragweed(sinus symptoms) sulfa drugs(Rash) Family history: Heart disease, myocardial infarction, diabetes, stroke, cancer and hypertension Social history: completely unremarkable Current Home Meds: (Last Updated 08/02 15:07) ALPRAZolam (Xanax 0.5 mg oral tablet) 0.5 mg PO Daily PRN: as needed for anxiety for dentist aloe polysaccharides-iodoquinol topical (Aloquin 1.25%-1% topical gel) 1 appl topical qid aluminum hydroxide-magnesium trisilicate (Gaviscon) 2 tab PO with meals cetirizine (ZyrTEC 10 mg oral tablet) 10 mg PO Daily ergocalciferol (Vitamin D2 50,000 intl units (1.25 mg) oral capsule) 50,000 Int_Unit PO q7days fluticasone nasal (Flonase 50 mcg/inh nasal spray) 1 spray each nostril Daily in summer hydrocortisone topical (hydrocortisone 2.5% topical ointment) 1 appl topical bid apply to periorbital dermatitis until clear and then as needed; use for up to 10 days hydrocortisone-iodoquinol topical (hydrocortisone-iodoquinol 1%-1% topical cream) 1 appl topical Daily apply to dermatitis on the chest and abdomen until clear and then use as needed indapamide (indapamide 1.25 mg oral tablet) 1.25 mg PO Daily losartan (losartan 50 mg oral tablet) 50 mg PO Daily omeprazole (PriLOSEC 20 mg oral delayed release capsule) 20 mg PO Daily simvastatin (simvastatin 40 mg oral tablet) 40 mg PO qhs sodium hyaluronate (Euflexxa 10 mg/mL intra-articular solution) 20 mg intra- articular q7days m17.12 left knee AO triamcinolone topical (triamcinolone 0.1% topical cream) 1 appl topical tid to aa on left arm Admission Exam Per Admitting Provider Physical Exam: (relevant to the procedure, including heart and lung evaluation) General: Alert and oriented x3 with proper grooming and hygiene Eyes: Pupils are equal and reactive to light with accommodation. Extraocular movements are intact Throat: Deferred due to COVID-19 precautions Cardiac: Regular rate and rhythm with no murmurs or gallops appreciated Lungs: Clear to auscultation throughout with no wheezing, rales or rhonchi Abdomen: Obese, nondistended, nontender with normal active bowel sounds Extremities: Right hip; flexion Is limited to 105 degrees, external rotation 40 degrees, and internal rotation of -5 degrees. Positive Stinchfield test. Positive logroll test. Tenderness to palpation over the groin. Patient is neurovascularly intact but does walk with a slight antalgic gait. Neuro: Cranial nerves II through XII are intact no motor or sensory deficit Skin: Normal in appearance no open skin areas or discharge Principal Diagnosis Right hip osteoarthritis Discharge Exam Right hip: Outer dressing was removed. Silverlon is clean dry and intact. Patient is able to perform an active straight leg raise test. She is able to actively dorsi and plantarflex her foot without difficulty. Quad strength is 3 out of 5. Patient experiences no pain with logroll test. She has no discomfort with light passive internal and external hip rotation. Patient is neurovascularly intact in the right lower extremity. Discharge Data Allergies Allergy/AdvReac Type Severity Reaction Status Date / Time latex Allergy Unknown RASH Verified 08/11/21 07:32 Sulfa (Sulfonamide Allergy Unknown RASH Verified 08/11/21 07:32 Antibiotics) egg AdvReac Severe TINGLING Verified 08/11/21 07:32 MOUTH, SEVERE NAUSEA, stomach cramps banana AdvReac Unknown Nausea Verified 08/11/21 07:32 broccoli AdvReac Unknown GI SYMPTOMS Verified 08/11/21 07:32 cat dander AdvReac Unknown CONGESTION Verified 08/11/21 07:32 coffee (Coffea arabica) AdvReac Unknown Nausea Verified 08/11/21 07:32 shellfish derived AdvReac Unknown SOME NAUSEA Verified 08/11/21 07:32 Procedures Performed Operation Date: 08/11/21 09:10 Actual Procedures p Right Total Hip Arthroplasty(Right) - Michael Zamudio MD Hospital Course (1) S/P total hip arthroplasty: Patient had an uneventful overnight stay following right total hip arthroplasty. She is doing very well this morning. She is planning on going home today around lunchtime. She is set up with in-home physical therapy starting tomorrow morning. This will be for the first 2 weeks postoperatively. Patient is very pleased with the results of her surgery and states that she has very minimal pain at present. Total hip precautions reviewed Weightbearing as tolerated with walker assistance PT/OT Ice with easy wrap DVT prophylaxis with aspirin and CLARK stockings Pain control with p.o. medication Keep Silverlon dressing in place Abduction pillow use for 6 weeks postoperatively Plan is discharge home today with in-home physical therapy starting tomorrow for the first 2 weeks postoperatively Follow-up at [facility] orth[facility] as previously scheduled. With questions contact our clinic at [phone] Total Time Total Time Spent Total Time Spent (In Minutes): 20 minutes Discharge Plan Discharge Items Patient Disposition: Home - Home Health Services Reason For Visit: Unilateral Primary Osteoarthritis of Right Hip Discharge Diagnosis: Right hip osteoarthritis Activity: Per Instructions section Lifting: None Bathing: Keep incision dry Bathing Comment: may shower tomorrow Sexual Activity: Wait until after follow-up appointment Exercise/Sports: None Driving/Machine Use: No driving until cleared by orthopedics Weightbearing: Right weightbearing Weightbearing Comment: as tolerated with walker assistance Non-emergency contact: Surgeon Call non-emergency contact if: you have any medication questions, your symptoms worsen, your temperature is above 101.5, your wound has increased redness and your wound has increased drainage Follow-up/Referrals: Vita Saunders MD [Primary Care Provider] - Diet: Regular Addtl Attending Provider Instructions: Post-operative Instructions Dear Patient and Family/Friends, Before you are discharged from the hospital, it is important to know what to expect when you get home after surgery. To that end, we have created this sheet of discharge instructions which covers many commonly asked questions. Make sure you go through this sheet in its entirety with your nurse before you are discharged. Please note that we will go over the specifics of your surgery and recovery when you return for your first post-operative visit. Sincerely, Dr. Zamudio Medications 1. Oxycodone 5 mg: take 1-2 tabs every 4-6 hours as needed for pain control. A prescription will be sent to your pharmacy. 2. Aspirin 81 mg: Take this medication twice daily for the first 30 days post operatively for blood clot prevention. Please purchase. 3. Diclofenac Sodium 75 mg: Take 1 tab twice daily for post op pain and inflammation relief. A prescription for this will be sent to your pharmacy with 1 refill. 4. Extra Strength Tylenol 500 mg: take 2 tabs every 6-8 hours for additional pain relief. Please purchase. Pain Expect to be in a fair amount of pain after surgery. Remember, our goal is not to eliminate your pain, but to make it tolerable. It is a good idea to stay ahead of your pain by taking the medications you were prescribed once you get home. Typically, the pain starts improving 3-7 days after surgery. You should start weaning off the narcotic pain medication (oxycodone, hydrocodone, hydromorphone, morphine) as soon as your pain improves. Please call our office if your pain is not adequately controlled. Ice Ice your operative site at least 5 times a day for 15-30 minutes at a time. Make sure you have a thin cloth between the ice or cooling unit and your skin to prevent winston bite. This is especially important if you received a nerve block. Continue icing your operative site for the first 5-7 days after surgery, then as needed. Diet/Nausea/Vomiting Start by drinking clear liquids and eating crackers. If you can tolerate this, then you may resume your normal diet. If you feel nauseated or vomit, take Zofran/ondansetron (if prescribed). Please call our office if you have intractable nausea or vomiting, or, if after hours, you may go to the Emergency Room for help. Constipation Constipation is a common side effect of narcotic pain medication. If you have not had a bowel movement within 2 days after surgery, we recommend purchasing an over the counter laxative such as Milk of Magnesia, Dulcolax, or Miralax from a local pharmacy, and taking it as instructed. Call our clinic if any questions. Nerve block The anesthesia team sometimes places a nerve block to help with post-operative pain control. This results in significant numbness and inability to move the extremity. The nerve block usually wears off in 8-12 hours, but sometimes can last up to 24 hours. Please call our office if you are still unable to move your extremity after 24 hours, unless you received a pain pump to take home. Nerve blocks typically wear off quickly, so start taking pain medication as soon as you start feeling soreness near your surgical site. Weight bearing and Range of Motion. Do not bear any weight through your operative extremity immediately after surgery. If you had upper extremity surgery, do not lift anything with that arm. If you are in a knee brace, keep it locked in place until your follow-up. We will discuss your weight bearing, range of motion, and lifting restrictions in detail at your first post-operative appointment. Continuous Passive Motion (CPM) Machine If you were prescribed a CPM machine, it will start after your first post- operative appointment, at which time we will give you instructions on the range of motion settings and duration of treatment Physical therapy You will be given a prescription for physical therapy or occupational therapy at your first post-operative appointment. Typically, patients start therapy within 1 week of surgery Wound care and showering We will inspect your wound at your first post-operative visit, and may do a dressing change at that time. Most patients will be in a water-proof dressing that is removed 14 days after surgery. It is normal to see some dried blood on the dressing. Do not remove your dressing, paper strips or sutures yourself unless you are given permission. Showering is allowed the day after surgery. Do not scrub or remove any dressings. The wound should not be submerged underwater (i.e. in a bathtub or pool) until 4 weeks after surgery CLARK stockings If you were given white stockings, these are to be worn at all times except to shower (on both legs) for the first 2 weeks after surgery. Driving You may not drive while taking narcotic pain medication or while in a cast, splint, sling or brace. You, the patient, need to make the final determination about when you are safe to drive, however, the earliest you may consider driving after surgery is below: Hand/Wrist/Elbow Surgery: 3 days Shoulder Surgery: 2 weeks Hip,/Knee/Ankle Surgery: 4 weeks Fracture repair: 6 weeks Return to Work Your return to work depends on what surgery was done and what type of work you do. Please bring any paperwork your employer needs completed to your first post-operative visit. Also, bring a description of your job duties, as this helps us to understand what risks you may face at work. Travel Avoid long distance travel (greater than 1 hour) in airplanes and cars for the first 6 weeks after surgery. If you must travel, you need to have a Doppler ultrasound done before you travel to rule out a blood clot in your legs. Follow-up You should have a follow-up appointment already scheduled 1-2 days after surgery. If not, please contact our office to make this appointment before you leave the hospital. When to call the office It is normal to have swelling and bruising in the limb that was operated on. This will improve with time. It is also normal to have fevers for the first 2 days after surgery. Reasons you should call your doctor include: Uncontrolled pain; Nausea, vomiting, or constipation that does not improve with medication; Fevers over 101.5, chills, sweats; Drainage or bleeding from the wound; Foul odor; Spreading areas of redness; Any other concerns Pending Studies at Discharge: No Stand-Alone Forms: My [employer], Smoking Cessation Medications and DC Order Prescriptions: New oxycodone 5 mg tablet 10 mg PO Q4H Qty: 28 RF: 0 diclofenac sodium 75 mg tablet,delayed release (DR/EC) 75 mg PO BID 30 Days Qty: 60 RF: 1 Continued simvastatin 40 mg tablet 40 mg PO QPM Qty: 90 RF: 3 indapamide 1.25 mg tablet 1.25 mg PO QAM Qty: 90 RF: 3 cholecalciferol (vitamin D3) 1,000 unit tablet,chewable 1,000 units PO QAM RF: 0 losartan 50 mg tablet 50 mg PO QAM Qty: 90 RF: 3 fluticasone propionate 50 mcg/actuation spray,suspension 2 sprays INTNAS DAILY PRN (Reason: Congestion) RF: 0 cetirizine 10 mg capsule 10 mg PO QPM RF: 0 Gaviscon 80-14.2 mg tablet,chewable 1 tab PO TID RF: 0 alprazolam 0.25 mg Tablet 0.25 mg PO UD PRN (Reason: PRE DENTAL) RF: 0 cyanocobalamin (vitamin B-12) [Vitamin B-12] 1,000 mcg Tablet 1,000 mcg PO QAM RF: 0 omeprazole 20 mg Capsule,Delayed Release(Dr/Ec) 20 - 40 mg PO UD PRN (Reason: Acid Reflux) RF: 0 Discharge Orders: Discharge Order (Routine); Ordered 08/12/21 Ordered By: Woodrow Middleton Admission Data Admit Date/Time: 08/11/21 11:20 Attending Provider: Michael Zamudio Admit Provider: Michael Zamudio Primary Care Provider: Vita Saunders
== END 2021-08-12 13:09 | disposition home health service (06) ==
LOC: ASU 06:47 → PACUINP 06:47 → 3E 13:40

== ENCOUNTER 2022-01-13 14:08 | Inpatient (IN) ==
[2022-01-13] MEDS ORDERED: diphenhydrAMINE 50 MG/ML VIAL IV STA (15:09)
[2022-01-13] MEDS ORDERED: methylPREDNISolone 60 MG in SYRINGE 1 ML IV STA (15:09)
[2022-01-13 15:21] LABS: Basophils # (auto) 0.03 K/uL (0-0.2); Basophils % (auto) 0.3 %; Eosinophils # (auto) 0.02 K/uL (0-0.50); Eosinophils % (auto) 0.2 %; Hematocrit (blood only) 40.1 % (34.1-44.9); Hemoglobin 13.1 g/dl (12.0-16.0); Immature Granulocytes # (auto) 0.05 K/uL (0.00-0.02); Immature Granulocytes % (auto) 0.5 %; Lymphocytes # (auto) 1.21 K/uL (1.2-3.4); Lymphocytes % (auto) 11.4 %; Mean Corpuscular Hemoglobin 27.7 pg (25.0-34.0); Mean Corpuscular Hgb Conc 32.7 g/dL (32.0-36.0); Mean Corpuscular Volume 84.8 fL (80.0-100.0); Monocytes # (auto) 0.78 K/uL (0.24-0.82); Monocytes % (auto) 7.4 %; Neutrophils # (auto) 8.49 K/uL (1.4-6.5); Neutrophils % (auto) 80.2 %; Platelet Count 258 K/uL (130-400); RDW Standard Deviation 49.8 fL (36.4-46.3); Red Blood Count 4.73 M/uL (3.93-5.22); White Blood Count 10.58 K/ul (4.8-10.8)
[2022-01-13 15:30] LABS: Calcium 9.5 mg/dl (8.5-10.1); Creatinine Clr Calc Pharmacy 60.2 ml/min; Est GFR (African American) 65.6 ml/min; Est GFR (Non-African American) 56.6 ml/min; Potassium 3.4 mmol/L (3.5-5.1)
--- NOTE | 2022-01-13 15:32 | Emergency Department Note ---
Impression & Plan Swelling of throat, Difficulty in swallowing, Hoarseness ED Provider Note NAME: JASON VINES AGE: 71 SEX: F : 1950 ARRIVES VIA: Walk-In INFORMANT: [Patient] ED PROVIDER(S): [Wade Chavarria MD] CHIEF COMPLAINT: Throat pain HISTORY OF PRESENT ILLNESS: The patient is a 71-year-old female who presents to the ER with a hoarse voice and trouble swallowing with moderate throat pain since yesterday after having a dental procedure. During the procedure, she was told that she had a tube in her throat, she was asleep. The patient states that she can drink a few sips of water, nothing else. Her voice is hoarse, she is coughing. She was sent here for evaluation by the dental office that did her procedure. They were working on her right lower jaw. REVIEW OF SYSTEMS: See HPI for pertinent positives and negatives. A total of ten systems were reviewed and were otherwise negative. PMHx/PSHx: See Below SOCIAL HISTORY: See Below. PHYSICAL EXAM: GENERAL: Patient is in no acute distress. HEENT: No acute trauma, normocephalic atraumatic, mucous membranes moist, no nasal congestion, no scleral icterus. No uvular edema or throat erythema. No p osterior pharyngeal swelling noted. The right lower jaw dental work appears to be healing without signs of infection. NECK: No stridor, no adenopathy, no meningismus, trachea is midline. Hoarse voice noted. LUNGS: Clear to auscultation bilaterally, no wheeze, no rhonchi, breath sounds equal. HEART: Without murmurs gallops or rubs, regular rate and rhythm. ABDOMEN: Soft, nontender, bowel sounds positive, no peritonitis. EXTREMITIES: No cyanosis or edema, full range of motion of all the joints w ithout pain or difficulty, no signs for acute trauma. NEUROLOGIC: Oriented x 3, no acute motor or sensory deficits, no focal weakness. SKIN: No rash, no jaundice, no diaphoresis. DIFFERENTIAL DIAGNOSIS: Vocal cord swelling, vocal cord trauma, uvular edema, esophageal swelling, airway narrowing, uvular edema, esophageal tear, pharyngitis, among others. EMERGENCY DEPARTMENT COURSE/PROCEDURES: MEDICAL DECISION MAKING: There is no leukocytosis or concerning anemia. There is a normal platelet count. Potassium slightly low at 3.4. No renal failure. CT of the soft tissue of the neck does show airway edema with some airway compromise. No hematoma, no abscess. The patient was given IV Solu-Medrol and IV Benadryl. She received IV saline. She is given IV Unasyn. Patient received a dose of IV Decadron. I did speak with ENT, Dr. Badillo. Patient was seen by ENT here in the ED. The patient is being admitted to the hospital for steroids, observation and further airway management. I spoke with the patient and case management, the on-call hospitalist has been consulted. 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 12 Claustrophobia Can tolerate oxygen mask GERD (gastroesophageal reflux disease) Well controlled and stable History of anesthesia reaction - WITH C/S- WAS DONE UNDER GA - NO ISSUES WITH SURGERY- IN RECOVERY AREA- COULD HEAR EVERYTHING GOING ON AND COULDN'T MOVE - WAS HYPERVENTILATING -HAS HAD SUBSEQUENT SURGERIES WITHOUT ISSUES HTN (hypertension) Hypercholesteremia Left knee pain Knee has given out in the past - does have brace - patient currently doing PT - patient will inform surgeon's office Metatarsal fracture LEFT FOOT Osteopenia Prediabetes Presence of pessary Pt can remove and replace pessary on her own- patient will remove pessary for surgery. Seasonal allergies Snoring HX SLEEP STUDY, (AROUND 2018) -RESULTS UNKNOWN Varicose veins of both lower extremities S/p vein ligation Surgical History History of section X 1 History of colonoscopy History of dilatation and curettage History of esophagogastroduodenoscopy (EGD) History of ligation of vein LEFT History of tooth extraction Family History Brother Family history of diabetes mellitus Grandmother (Maternal) Family history of diabetes mellitus Social History Smoking Status: Never smoker Second Hand Exposure: Yes ( A CHILD); Hx Alcohol Use: No Hx Substance Use: No Preferred Language: Greek Communication Ability: Effective 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 Beliefs That Will Affect Care: None and Judaism Judaism Beliefs: RESTORATION marital status: Current Living Situation: Spouse Feels Safe at Home: Yes Assistive Devices: Walker Allergies Allergies Allergy/AdvReac Type Severity Reaction Status Date / Time latex Allergy Unknown RASH Verified 01/13/22 18:11 Sulfa (Sulfonamide Allergy Unknown RASH Verified 01/13/22 18:11 Antibiotics) egg AdvReac Severe TINGLING Verified 01/13/22 18:11 MOUTH, SEVERE NAUSEA, stomach cramps banana AdvReac Unknown Nausea Verified 01/13/22 18:11 broccoli AdvReac Unknown GI SYMPTOMS Verified 01/13/22 18:11 cat dander AdvReac Unknown CONGESTION Verified 01/13/22 18:11 coffee (Coffea arabica) AdvReac Unknown Nausea Verified 01/13/22 18:11 shellfish derived AdvReac Unknown SOME NAUSEA Verified 01/13/22 18:11 Home Meds Home Medications Medication Instructions Recorded Confirmed fluticasone propionate 50 2 sprays intranasal DAILY PRN 01/03/19 01/13/22 mcg/actuation nasal Congestion spray,suspension cholecalciferol (vitamin D3) 25 1,000 units PO QAM 04/10/19 01/13/22 mcg (1,000 unit) chewable tablet Al hyd-Mg tr-alg ac-sod bicarb 80 1 tab PO TID PRN Gi Upset 08/20/19 01/13/22 mg-14.2 mg chewable tablet (Gaviscon) cetirizine 10 mg capsule 10 mg PO QPM 08/29/19 01/13/22 cyanocobalamin (vitamin B-12) 1,000 mcg PO QAM 08/01/21 01/13/22 1,000 mcg tablet (Vitamin B-12) aspirin 81 mg tablet,delayed 81 mg PO DAILY 12/20/21 01/13/22 release (Adult Low Dose Aspirin) ibuprofen 200 mg tablet (Advil) 600 - 800 mg PO Q8 PRN Pain 12/20/21 01/13/22 amoxicillin 500 mg capsule 2,000 mg PO DIRECTED 01/13/22 01/13/22 amoxicillin 500 mg capsule 500 mg PO TID 01/13/22 01/13/22 chlorhexidine gluconate 0.12 % 0 ml PO DIRECTED 01/13/22 01/13/22 mouthwash Previous Rx's Medication Instructions Recorded losartan 50 mg tablet 50 mg PO QAM #90 tabs 05/16/21 indapamide 1.25 mg tablet 1.25 mg PO QAM #90 tabs 08/02/21 simvastatin 40 mg tablet 40 mg PO QPM #90 tabs 08/12/21 alprazolam 0.25 mg tablet 0.25 mg PO DAILY PRN 12/20/21 anxiety/claustrophobia related to dental appts #7 tabs metformin 500 mg tablet,extended 500 mg PO BID #180 tabs 12/20/21 release 24 hr Results & Data (ED) Vital Signs Vital Signs - 24 hr 01/13/22 14:20 01/13/22 15:10 01/13/22 14:45 Temperature 37.3 C Temperature Source Oral Pulse Rate 90 70 82 Pulse Rate from SpO2 Sensor 82 Pulse Rhythm Regular Pulse Strength Normal Respiratory Rate 20 19 Respiratory Effort / Characteristics Non-Labored Spontaneous Respiratory Depth Normal Respiratory Pattern Regular Blood Pressure 153/97 H Blood Pressure Mean 115 Blood Pressure Position Sitting Pulse Oximetry 93 99 94 Oxygen Delivery Method Room Air Room Air Sepsis Recent Fever Within 48 Hours No Sepsis New/Unexplained Change in Mental Status No Sepsis Action Taken by Nursing No Action Required 01/13/22 15:00 01/13/22 15:30 01/13/22 16:32 Temperature Temperature Source Pulse Rate 88 86 Pulse Rate from SpO2 Sensor 86 86 Pulse Rhythm Pulse Strength Respiratory Rate 25 H 22 Respiratory Effort / Characteristics Respiratory Depth Respiratory Pattern Blood Pressure 137/91 Blood Pressure Mean 106 Blood Pressure Position Pulse Oximetry 95 94 Oxygen Delivery Method Sepsis Recent Fever Within 48 Hours Sepsis New/Unexplained Change in Mental Status Sepsis Action Taken by Nursing 01/13/22 16:32 01/13/22 16:59 01/13/22 17:00 Temperature Temperature Source Pulse Rate Pulse Rate from SpO2 Sensor 75 Pulse Rhythm Pulse Strength Respiratory Rate Respiratory Effort / Characteristics Respiratory Depth Respiratory Pattern Blood Pressure 142/91 H Blood Pressure Mean 108 Blood Pressure Position Pulse Oximetry 94 92 Oxygen Delivery Method Sepsis Recent Fever Within 48 Hours Sepsis New/Unexplained Change in Mental Status Sepsis Action Taken by Nursing 01/13/22 17:01 01/13/22 17:30 01/13/22 17:30 Temperature Temperature Source Pulse Rate Pulse Rate from SpO2 Sensor 76 76 Pulse Rhythm Pulse Strength Respiratory Rate Respiratory Effort / Characteristics Respiratory Depth Respiratory Pattern Blood Pressure 148/99 H Blood Pressure Mean 115 Blood Pressure Position Pulse Oximetry 92 92 Oxygen Delivery Method Sepsis Recent Fever Within 48 Hours Sepsis New/Unexplained Change in Mental Status Sepsis Action Taken by Nursing 01/13/22 18:17 01/13/22 18:30 01/13/22 18:30 Temperature Temperature Source Pulse Rate Pulse Rate from SpO2 Sensor 80 81 Pulse Rhythm Pulse Strength Respiratory Rate Respiratory Effort / Characteristics Respiratory Depth Respiratory Pattern Blood Pressure 174/113 H Blood Pressure Mean 133 Blood Pressure Position Pulse Oximetry 92 91 Oxygen Delivery Method Sepsis Recent Fever Within 48 Hours Sepsis New/Unexplained Change in Mental Status Sepsis Action Taken by Half-Way Medications Current Medication List: was personally reviewed by me Laboratory Data Attestation: I reviewed the patient's lab results. Result diagrams: 01/13/22 14:39 01/13/22 14:39 Lab Results 01/13/22 01/13/22 Range/Units 14:39 14:39 WBC 10.58 (4.8-10.8) K/ul RBC 4.73 (3.93-5.22) M/uL Hgb 13.1 (12.0-16.0) g/dl Hct 40.1 (34.1-44.9) % MCV 84.8 (80.0-100.0) fL MCH 27.7 (25.0-34.0) pg MCHC 32.7 (32.0-36.0) g/dL RDW Std Deviation 49.8 H (36.4-46.3) fL RDW Coeff of Adela 16.0 H (11.5-14.5) % Plt Count 258 (130-400) K/uL MPV 10.0 (9.4-12.3) fL Immature Gran % (Auto) 0.5 % Neut % (Auto) 80.2 % Lymph % (Auto) 11.4 % [place] % (Auto) 7.4 % Eos % (Auto) 0.2 % Baso % (Auto) 0.3 % Neut # (Auto) 8.49 H (1.4-6.5) K/uL Lymph # (Auto) 1.21 (1.2-3.4) K/uL [place] # (Auto) 0.78 (0.24-0.82) K/uL Eos # (Auto) 0.02 (0-0.50) K/uL Baso # (Auto) 0.03 (0-0.2) K/uL Immature Gran # (Auto) 0.05 H (0.00-0.02) K/uL Sodium 139 (136-145) mmol/L Potassium 3.4 L (3.5-5.1) mmol/L Chloride 102 (98-107) mmol/L Carbon Dioxide 28 (21-32) mmol/L Anion Gap 9 (3-11) BUN 16 (6-23) mg/dl Creatinine 1.00 (0.6-1.2) mg/dl Est Cr Clr Drug Dosing 60.2 ml/min Est GFR ( Amer) 65.6 ml/min Est GFR (Non-Af Amer) 56.6 ml/min BUN/Creatinine Ratio 16.0 (10-20) Glucose 89 (70-99(Fasting)) mg/dl Calcium 9.5 (8.5-10.1) mg/dl Administered Medications Discontinued Medications Dexamethasone Sodium Phosphate (DexamethasonePf 10 Mg/Ml Vial) 4 mg IV NOW ONE Stop: 01/13/22 18:33 Last Admin: 01/13/22 19:14 Dose: 4 mg Documented By: TUAN Diphenhydramine HCl (Diphenhydramine 50 Mg/Ml Vial) 12.5 mg IV NOW STA Stop: 01/13/22 15:10 Last Admin: 01/13/22 15:16 Dose: 12.5 mg Documented By: CLINT Methylprednisolone 60 mg/ (Syringe) 1.96 mls @ 1.5 mls/min IV NOW STA Stop: 01/13/22 15:10 Last Admin: 01/13/22 15:17 Dose: 1.5 mls/min Documented By: CLINT Ampicillin Sodium/Sulbactam Sodium 3,000 mg/ Sodium Chloride 108 mls @ 200 mls/hr IV NOW STA; Protocol Stop: 01/13/22 19:05 Last Admin: 01/13/22 20:14 Dose: 200 mls/hr Documented By: TUAN Sodium Chloride (Nss 1000ml) 500 mls @ 999 mls/hr IV .Q31M ONE Stop: 01/13/22 19:04 Last Admin: 01/13/22 20:15 Dose: 999 mls/hr Documented By: TUAN Ioversol (Optiray 350 100ml) 88 ml IV ONCE ONE Stop: 01/13/22 15:46 Last Admin: 01/13/22 15:46 Dose: 88 ml Documented By: JULIAN Lidocaine HCl (Lidocaine 2% Jelly 5 Ml Tube) Confirm Administered Dose 5 ml .ROUTE .STK-MED ONE Stop: 01/13/22 17:39 Last Admin: 01/13/22 17:41 Dose: 5 ml Documented By: [id number] Methylprednisolone (Methylprednisolone 40 Mg/Ml Vial) Confirm Administered Dose 80 mg .ROUTE .STK-MED ONE Stop: 01/13/22 15:15 Last Admin: 01/13/22 15:17 Dose: Not Given Documented By: CHARLESW Imaging Data Radiologist's Impression: Soft Tissue Neck CT 01/13/22 15:09 CT SCAN OF THE NECK WITH IV CONTRAST CLINICAL HISTORY: Dysphagia. Unspecified surgery yesterday. Sore throat. COMPARISON STUDY: No priors. TECHNIQUE: Following the IV administration of 88 cc of Optiray 350, CT scan of the soft tissues of the neck was performed from the skull base to the upper chest. Images are reviewed in the axial, sagittal, and coronal planes. IV contrast was administered without complication. A dose lowering technique was utilized adhering to the principles of ALARA. CT DOSE: 597.09 mGy.cm FINDINGS: Pharynx: Evaluation of the oropharynx is significantly degraded by streak artifact from dental amalgam. There is significant mucosal edema within the hypopharynx, best seen on axial image #195. There is associated mucosal h yperemia and surrounding inflammation. There is significant associated narrowing of the supraglottic airway. There is mild edema of the epiglottis. No definite fluid collection is identified. There is no evidence of mass lesion. The vocal cords are symmetric. The parapharyngeal fat is maintained. The prevertebral/retropharyngeal soft tissues are within normal limits. Lymphadenopathy: No cervical lymphadenopathy is seen Thyroid: Normal in size and heterogeneous in attenuation. Salivary glands: The parotid and submandibular glands are within normal limits. Brain parenchyma: The visualized brain parenchyma at the skull base is normal in appearance. Vascular structures: The carotid arteries and jugular veins are patent. Skeletal structures: The skeletal structures are osteopenic. Imaged portions of the calvarium at the skull base are within normal limits. The cervical spine there is maintained noting multilevel spondylosis. No lytic or blastic lesion is seen. Orbits: Globes are intact. Orbital contents are normal as visualized. Sinuses and mastoids: There is mild mucosal thickening within the maxillary antra. The remaining paranasal sinuses are clear. The mastoid air cells are well pneumatized. Lung apices: Visualized apical lung parenchyma is clear. Ventilation: There is a large periapical lucency involving the left lateral incisor of the maxilla. There is no evidence of periodontal abscess. Mild infiltration is suggested overlying the right aspect of the mandible. IMPRESSION: 1. There is significant mucosal edema of the hypopharynx with associated mucosal hyperemia and mild surrounding inflammation. This causes significant narrowing of the supraglottic airway. Given the history of recent surgery this may be related to intubation. Clinical correlation will be essential. Close clinical follow-up is recommended based on the degree of airway narrowing. 2. No organized fluid collection is clearly seen to indicate abscess. 3. There is a large periapical lucency involving the left lateral incisor of the maxilla. 4. Mild soft tissue edema suggests overlying the right aspect of the mandible. There is no CT evidence of periodontal abscess. ACT 112: Negative or not required by law. Electronically signed by: Wade Guillaume M.D. 01/13/2022 4:02 PM Discharge Plan Visit Data Chief Complaint: Throat Pain Stated Complaint: POST OP, TROUBLE BREATHING, CAN'T SWALLOW ED Provider: Wade Chavarria Discharge Problem: Swelling of throat, Difficulty in swallowing, Hoarseness Patient Disposition: Admitted As Inpatient Condition: Fair Forms Stand Alone Forms: [facility] Prescriptions Prescriptions: No Action indapamide 1.25 mg tablet 1.25 mg PO QAM Qty: 90 3RF Rx Instructions: take 1 tablet by mouth every morning simvastatin 40 mg tablet 40 mg PO QPM Qty: 90 3RF cholecalciferol (vitamin D3) 1,000 unit tablet,chewable 1,000 units PO QAM ibuprofen [Advil] 200 mg tablet 600 - 800 mg PO Q8 PRN (Reason: Pain) aspirin [Adult Low Dose Aspirin] 81 mg tablet,delayed release (DR/EC) 81 mg PO DAILY alprazolam 0.25 mg tablet 0.25 mg PO DAILY PRN (Reason: anxiety/claustrophobia related to dental appts) Qty: 7 0RF metformin 500 mg tablet extended release 24 hr 500 mg PO BID Qty: 180 3RF Rx Instructions: on hold losartan 50 mg tablet 50 mg PO QAM Qty: 90 3RF fluticasone propionate 50 mcg/actuation spray,suspension 2 sprays INTNAS DAILY PRN (Reason: Congestion) Label Comments: THIS TIME OF YEAR IT'S PRETTY MUCH EVERY DAY cetirizine 10 mg capsule 10 mg PO QPM Gaviscon 80-14.2 mg tablet,chewable 1 tab PO TID PRN (Reason: Gi Upset) amoxicillin 500 mg capsule 2,000 mg PO DIRECTED Rx Instructions: Take 1 hr before dental apt. amoxicillin 500 mg capsule 500 mg PO TID Rx Instructions: take for 7 days, filled 01/12/22 chlorhexidine gluconate 0.12 % mouthwash 0 ml PO DIRECTED cyanocobalamin (vitamin B-12) [Vitamin B-12] 1,000 mcg Tablet 1,000 mcg PO QAM Referrals Referrals: Vita Saunders MD [Primary Care Provider] -
[2022-01-13] MEDS ORDERED: OPTIRAY 350 100ml IV ONE (15:45)
--- NOTE | 2022-01-13 16:04 | CT Scan Report ---
CT SCAN OF THE NECK WITH IV CONTRAST CLINICAL HISTORY: Dysphagia. Unspecified surgery yesterday. Sore throat. COMPARISON STUDY: No priors. TECHNIQUE: Following the IV administration of 88 cc of Optiray 350, CT scan of the soft tissues of e neck was performed from the skull base to the upper chest. Images are reviewed in the axial, sagitt al, and coronal planes. IV contrast was administered without complication. A dose lowering techniqu e was utilized adhering to the principles of ALARA. CT DOSE: 597.09 mGy.cm FINDINGS: Pharynx: Evaluation of the oropharynx is significantly degraded by streak artifact from dental amalga m. There is significant mucosal edema within the hypopharynx, best seen on axial image #195. There is associated mucosal hyperemia and surrounding inflammation. There is significant associated narrowing of the supraglottic airway. There is mild edema of the epiglottis. No definite fluid collection is i dentified. There is no evidence of mass lesion. The vocal cords are symmetric. The parapharyngeal fat is maintained. The prevertebral/retropharyngeal soft tissues are within normal limits. Lymphadenopathy: No cervical lymphadenopathy is seen Thyroid: Normal in size and heterogeneous in attenuation. Salivary glands: The parotid and submandibular glands are within normal limits. Brain parenchyma: The visualized brain parenchyma at the skull base is normal in appearance. Vascular structures: The carotid arteries and jugular veins are patent. Skeletal structures: The skeletal structures are osteopenic. Imaged portions of the calvarium at the skull base are within normal limits. The cervical spine there is maintained noting multilevel spondyl osis. No lytic or blastic lesion is seen. Orbits: Globes are intact. Orbital contents are normal as visualized. Sinuses and mastoids: There is mild mucosal thickening within the maxillary antra. The remaining para nasal sinuses are clear. The mastoid air cells are well pneumatized. Lung apices: Visualized apical lung parenchyma is clear. Ventilation: There is a large periapical lucency involving the left lateral incisor of the maxilla. T here is no evidence of periodontal abscess. Mild infiltration is suggested overlying the right aspect of the mandible. IMPRESSION: 1. There is significant mucosal edema of the hypopharynx with associated mucosal hyperemia and mild s urrounding inflammation. This causes significant narrowing of the supraglottic airway. Given the hist ory of recent surgery this may be related to intubation. Clinical correlation will be essential. Clos e clinical follow-up is recommended based on the degree of airway narrowing. 2. No organized fluid collection is clearly seen to indicate abscess. 3. There is a large periapical lucency involving the left lateral incisor of the maxilla. 4. Mild soft tissue edema suggests overlying the right aspect of the mandible. There is no CT evidenc e of periodontal abscess. ACT 112: Negative or not required by law. Electronically signed by: Wade Guillaume M.D. 01/13/2022 4:02 PM
[2022-01-13] MEDS ORDERED: LIDOCAINE 2% JELLY 5 ML TUBE ONE (17:38)
--- NOTE | 2022-01-13 17:59 | ENT Consultation ---
Date of Consultation January 13, 2022 Assessment & Plan (1) Supraglottitis without airway obstruction: Plan Patient has had injury / irritation from the Intubation and Endotracheal Tube placement for the General Anesthesia. Will need #1. IV Antibiotics such as UNASYN since swallowing is a pain for the patient and cannot take Oral Meds. 2. Short 24 hour IV Steroid use - such as Decadron 4 mg IV TID. Would NOT extend Steroid use more than 48 hours. 3. Needs PERIDEX Mouth RINSES for the next five days as per Dr. Escobar - [facility]. 4. Patient would need Hospital Observation until she can comfortably take PO for meal and especially for MEDS. History of Present Illness Reason for Consultation: Hoarseness, Throat Pain and Difficulty swallowing after Oromaxillofacial Office Procedure Requesting Physician: Wade Chavarria Attending Physician: Vita Saunders History of Present Illness Patient had Dental Implant placed yesterday at the [facility] Office of [facility]. Anesthesia by Dr. Roque Barreto. She had an implant placed at the [facility]. The procedure took about 2 hours. She was told that she would have hoarseness after the Dental Implant (?). Her throat was sore after the procedure and found that she could not swallow any food or liquids, Certainly NOT any pills. She has been able to swallow her own secretions. When nothing seemed to improve today, she came to [facility] for evaluation. Allergies Allergy/AdvReac Type Severity Reaction Status Date / Time latex Allergy Unknown RASH Verified 01/13/22 18:11 Sulfa (Sulfonamide Allergy Unknown RASH Verified 01/13/22 18:11 Antibiotics) egg AdvReac Severe TINGLING Verified 01/13/22 18:11 MOUTH, SEVERE NAUSEA, stomach cramps banana AdvReac Unknown Nausea Verified 01/13/22 18:11 broccoli AdvReac Unknown GI SYMPTOMS Verified 01/13/22 18:11 cat dander AdvReac Unknown CONGESTION Verified 01/13/22 18:11 coffee (Coffea arabica) AdvReac Unknown Nausea Verified 01/13/22 18:11 shellfish derived AdvReac Unknown SOME NAUSEA Verified 01/13/22 18:11 Home Medications Medication Instructions Recorded Confirmed Type fluticasone propionate 50 2 sprays intranasal DAILY PRN 01/03/19 12/20/21 History mcg/actuation nasal Congestion spray,suspension cholecalciferol (vitamin D3) 25 1,000 units PO QAM 04/10/19 12/20/21 History mcg (1,000 unit) chewable tablet Al hyd-Mg tr-alg ac-sod bicarb 80 1 tab PO TID 08/20/19 12/20/21 History mg-14.2 mg chewable tablet (Gaviscon) cetirizine 10 mg capsule 10 mg PO QPM 08/29/19 12/20/21 History losartan 50 mg tablet 50 mg PO QAM #90 tabs 05/16/21 12/20/21 Rx cyanocobalamin (vitamin B-12) 1,000 mcg PO QAM 08/01/21 12/20/21 History 1,000 mcg tablet (Vitamin B-12) indapamide 1.25 mg tablet 1.25 mg PO QAM #90 tabs 08/02/21 12/20/21 Rx simvastatin 40 mg tablet 40 mg PO QPM #90 tabs 08/12/21 12/20/21 Rx alprazolam 0.25 mg tablet 0.25 mg PO DAILY PRN 12/20/21 12/20/21 Rx anxiety/claustrophobia related to dental appts #7 tabs aspirin 81 mg tablet,delayed 81 mg PO DAILY 12/20/21 12/20/21 History release (Adult Low Dose Aspirin) ibuprofen 200 mg tablet (Advil) 200 mg PO Q6H PRN 12/20/21 12/20/21 History metformin 500 mg tablet,extended 500 mg PO BID #180 tabs 12/20/21 12/20/21 Rx release 24 hr Patient History Medical History 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 12 Claustrophobia Can tolerate oxygen mask GERD (gastroesophageal reflux disease) Well controlled and stable History of anesthesia reaction - WITH C/S- WAS DONE UNDER GA - NO ISSUES WITH SURGERY- IN RECOVERY AREA- COULD HEAR EVERYTHING GOING ON AND COULDN'T MOVE - WAS HYPERVENTILATING -HAS HAD SUBSEQUENT SURGERIES WITHOUT ISSUES HTN (hypertension) Hypercholesteremia Left knee pain Knee has given out in the past - does have brace - patient currently doing PT - patient will inform surgeon's office Metatarsal fracture LEFT FOOT Osteopenia Prediabetes Presence of pessary Pt can remove and replace pessary on her own- patient will remove pessary for surgery. Seasonal allergies Snoring HX SLEEP STUDY, (AROUND 2019) -RESULTS UNKNOWN Varicose veins of both lower extremities S/p vein ligation Surgical History History of section X 1 History of colonoscopy History of dilatation and curettage History of esophagogastroduodenoscopy (EGD) History of ligation of vein LEFT History of tooth extraction Family History Brother Family history of diabetes mellitus Grandmother (Maternal) Family history of diabetes mellitus Social History Smoking Status: Never smoker Second Hand Exposure: Yes ( A CHILD); Hx Alcohol Use: No Hx Substance Use: No Preferred Language: Nigerien Communication Ability: Effective Manager Software Development Required: No Beliefs That Will Affect Care: None and L[employer] L[employer]-Day Beliefs: WORSHIP marital status: Current Living Situation: Spouse Feels Safe at Home: Yes Assistive Devices: Walker Review of Systems Review of Systems: All systems reviewed & are unremarkable except as noted in HPI & below Constitutional: Alert & Oriented in no acute distress. Eyes: No diplopia. Ear, Nose, Mouth, Throat: + foul smell, + halitosis, + dental pain, + change in voice, + hoarseness and + pain with swallowing; no mouth lesions Respiratory: no dyspnea, no hemoptysis, no snoring and no wheezing Cardiovascular: no chest pain, no chest pain with activity, no dyspnea at rest and no palpitations Gastrointestinal: + pain with swallowing; no nausea and no vomiting Neurologic: no localized weakness, no paralysis, no numbness, no radiating pain and no syncope Psychiatric: no hopelessness, no suicidal ideation and no paranoia Physical Exam Constitutional: WD/WN, vitals as above Eyes: PERRL, conjunctivae normal, anicteric sclerae ENMT: Ears: no EAC abnormality Nose: no external nose abnormality, no turbinate abnormality, no septum abnormality, no nasal discharge and no epistaxis Mouth: + muffled voice, + malodorous breath and + dental restorations; no lip abnormality, no oral mucosal abnormality, no tongue abnormality, no mouth trauma, no drooling and no macroglossia Mallampati Class: II Throat: uvula midline; no posterior oropharynx abnormality, no tonsil abnormality, tonsils present, no uvular edema and no postnasal drainage Neck: trachea midline, no thyromegaly Thyroid: normal thyroid Respiratory: normal respiratory effort and able to speak in complete sentences; no retractions, no cough and no stridor Cardiovascular: RRR, no murmur, no edema Results & Data ([facility]) Vital Signs (Past 12 Hours) Vital Signs Temp Pulse Resp BP Pulse Ox O2 Del Method 01/13/22 14:20 37.3 C 90 20 153/97 H 93 Room Air Diagnostic Findings PROCEDURE: FLEXIBLE LARYNGOSCOPY - Bedside. Surgeon: Sina Badillo MD, FACS Anesthesia: Topical 2% Viscous Lidocaine. NOTE: After informed consent - the patient in semi-fowlers position at bedside, the 2% Viscous Lidocaine - 1 ml jelly inserted into each nostril / nasal airway for topical anesthetic. A total of 2 ml used. The Flexible Fiberoptic Laryngoscope was easily passed through the Nasal airway and Nasopharynx - and then directed to the Hypopharynx were the Larynx was inspected and observed with breathing and swallowing of the patient. FINDINGS: Glottic Airway is patent - vocal cords are irritated from recent Endotracheal Intubation - but MOBILE. NO impending airway compromise - but GLOTTIC Inflammation still has fibrinous deposits of the FALSE CORDS - with the Fibrin Deposit extending to the Ventricles above the True Cords and onto the Posterior Commissure. - NORMAL EPIGLOTTIS - with Fibrin Deposit on the Glottic surface right where the Endotracheal Tube was inserted. - NORMAL Lingual Surface. - Vallecula is CLEAR and OPEN. NO swelling. Arytenoids are ERTYHEMATOUS and has FIBRIN DEPOSIT as well on the glottic surface - where the ENDO-TUBE was - but does NOT extend to the Pharyngeal surface. . Aryepiglottic Folds are THICKENED and Erythematous . MUCOSA is PINK - NOT Erythematous. Nasopharynx Findings: Adenoids Eustachian Tube Openings NO Nasal issues seen on the Fiberoptic Endoscopy. COMPLICATIONS: NONE CONDITION: Patient tolerated the procedure well and remained under [facility] care. Medications Administered Topical 2% viscous Xylocaine for the Fiberoptic Laryngoscopy.
[2022-01-13] MEDS ORDERED: dexAMETHasone**PF** 10 MG/ML VIAL IV ONE (18:32)
[2022-01-13] MEDS ORDERED: AMPICILLIN/SULBACTAM SOD 3,000 MG in 0.9 % SODIUM CHLORIDE 100 ML IV STA (18:33)
[2022-01-13] MEDS ORDERED: SODIUM CHLORIDE 0.9% 1000ML 500 ML IV ONE (18:34)
[2022-01-13] MEDS ORDERED: hydrALAZINE HCL 20 MG/ML VIAL IV PRN (18:59)
--- NOTE | 2022-01-13 19:35 | History & Physical Report ---
Date of Service January 13, 2022 Assessment & Plan (1) Supraglottitis without airway obstruction: Plan: Patient will be admitted with dysphagia (inability to swallow liquid), and irritation from Endotracheal tube placement. will admit to tele. placed on steroids, decadron 4 mg IV TID, minimum 24 hours. May extend to 48 hours, ordered placed for 48 hours. placed on peridex BID. will observe in hospital until she is able to tolerate PO. continue unasyn Possible discharge on 01/14 (2) Hypertension: Plan: hold home meds (3) Hypercholesterolemia: Plan: hold home meds (4) Prediabetes: Plan: given patient will only be on steroids for 24 to 48 hours. ordered 5 more doses for 48 hours, however this can be discontinued prior History of Present Illness Chief Complaint: sore throat Primary Care Provider: Vita Saunders MD 71 yo female with PMH below presents to the ER due to diffuclty swallowing and having a hoarse voice. Patient had some sort of dental procedure the day prior and required endotracheal intubation. Since then she has been having a sore throat, hoarse voice, and difficulty swallowing water and her pills. She was sent to ER, and evaluated by ENT. ENT recommended steroids, antibiotics. Allergies Allergy/AdvReac Type Severity Reaction Status Date / Time latex Allergy Unknown RASH Verified 01/13/22 18:11 Sulfa (Sulfonamide Allergy Unknown RASH Verified 01/13/22 18:11 Antibiotics) egg AdvReac Severe TINGLING Verified 01/13/22 18:11 MOUTH, SEVERE NAUSEA, stomach cramps banana AdvReac Unknown Nausea Verified 01/13/22 18:11 broccoli AdvReac Unknown GI SYMPTOMS Verified 01/13/22 18:11 cat dander AdvReac Unknown CONGESTION Verified 01/13/22 18:11 coffee (Coffea arabica) AdvReac Unknown Nausea Verified 01/13/22 18:11 shellfish derived AdvReac Unknown SOME NAUSEA Verified 01/13/22 18:11 Home Medications Medication Instructions Recorded Confirmed Type fluticasone propionate 50 2 sprays intranasal DAILY PRN 01/03/19 01/13/22 History mcg/actuation nasal Congestion spray,suspension cholecalciferol (vitamin D3) 25 1,000 units PO QAM 04/10/19 01/13/22 History mcg (1,000 unit) chewable tablet Al hyd-Mg tr-alg ac-sod bicarb 80 1 tab PO TID PRN Gi Upset 08/20/19 01/13/22 History mg-14.2 mg chewable tablet (Gaviscon) cetirizine 10 mg capsule 10 mg PO QPM 08/29/19 01/13/22 History losartan 50 mg tablet 50 mg PO QAM #90 tabs 05/16/21 01/13/22 Rx cyanocobalamin (vitamin B-12) 1,000 mcg PO QAM 08/01/21 01/13/22 History 1,000 mcg tablet (Vitamin B-12) indapamide 1.25 mg tablet 1.25 mg PO QAM #90 tabs 08/02/21 01/13/22 Rx simvastatin 40 mg tablet 40 mg PO QPM #90 tabs 08/12/21 01/13/22 Rx alprazolam 0.25 mg tablet 0.25 mg PO DAILY PRN 12/20/21 01/13/22 Rx anxiety/claustrophobia related to dental appts #7 tabs aspirin 81 mg tablet,delayed 81 mg PO DAILY 12/20/21 01/13/22 History release (Adult Low Dose Aspirin) ibuprofen 200 mg tablet (Advil) 600 - 800 mg PO Q8 PRN Pain 12/20/21 01/13/22 History metformin 500 mg tablet,extended 500 mg PO BID #180 tabs 12/20/21 01/13/22 Rx release 24 hr amoxicillin 500 mg capsule 2,000 mg PO DIRECTED 01/13/22 01/13/22 History amoxicillin 500 mg capsule 500 mg PO TID 01/13/22 01/13/22 History chlorhexidine gluconate 0.12 % 0 ml PO DIRECTED 01/13/22 01/13/22 History mouthwash 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 12 Claustrophobia Can tolerate oxygen mask GERD (gastroesophageal reflux disease) Well controlled and stable History of anesthesia reaction - WITH C/S- WAS DONE UNDER GA - NO ISSUES WITH SURGERY- IN RECOVERY AREA- COULD HEAR EVERYTHING GOING ON AND COULDN'T MOVE - WAS HYPERVENTILATING -HAS HAD SUBSEQUENT SURGERIES WITHOUT ISSUES HTN (hypertension) Hypercholesteremia Left knee pain Knee has given out in the past - does have brace - patient currently doing PT - patient will inform surgeon's office Metatarsal fracture LEFT FOOT Osteopenia Prediabetes Presence of pessary Pt can remove and replace pessary on her own- patient will remove pessary for surgery. Seasonal allergies Snoring HX SLEEP STUDY, (AROUND 2019) -RESULTS UNKNOWN Varicose veins of both lower extremities S/p vein ligation Surgical History History of section X 1 History of colonoscopy History of dilatation and curettage History of esophagogastroduodenoscopy (EGD) History of ligation of vein LEFT History of tooth extraction Family History Brother Family history of diabetes mellitus Grandmother (Maternal) Family history of diabetes mellitus Social History Smoking Status: Never smoker Second Hand Exposure: Yes ( A CHILD); Hx Alcohol Use: No Hx Substance Use: No Preferred Language: Beninese Communication Ability: Effective Tank Washer Required: No Beliefs That Will Affect Care: None marital status: Current Living Situation: Family Other Information That Helps Us Care for You: No Feels Safe at Home: Yes Safety Concerns: Feels Safe At This Time Assistive Devices: None Review of Systems Constitutional: no fever Eyes: no blind spots Ear, Nose, Mouth, Throat: no ear pain Respiratory: no dyspnea Cardiovascular: no chest pain Gastrointestinal: no abdominal pain Genitourinary: no dysuria Musculoskeletal: no back pain Integumentary: no acne Neurologic: no gait abnormality Psychiatric: no behavioral changes Endocrine: no fatigue Hematologic / Lymphatic: no easy bleeding Allergy / Immunological: no GI upset with certain foods Physical Exam Constitutional: WD/WN, vitals as above Eyes: PERRL, conjunctivae normal, anicteric sclerae (right lower jaw appears to be healing.) ENMT: external ear and nose normal, oropharynx normal Neck: trachea midline, no thyromegaly Respiratory: normal respiratory effort, lungs clear to auscultation Cardiovascular: RRR, no murmur, no edema Gastrointestinal (Abdomen): normal bowel sounds, soft, nontender, no hepatosplenomegaly Musculoskeletal: no cyanosis or clubbing, extremities motor strength 5/5 Skin: no rashes, warm and dry Neurologic: PERRL, EOMI, accommodation nl, no face palsy, no dysarthria Psychiatric: A+Ox3, euthymic affect Lymphatic: no cervical or axillary lymphadenopathy Results & Data Results & Data ([facility]) Vital Signs (Past 12 Hours) Vital Signs Temp Pulse Resp BP Pulse Ox O2 Del Method 01/13/22 18:30 91 01/13/22 18:30 174/113 H 01/13/22 18:17 92 01/13/22 17:30 92 01/13/22 17:30 148/99 H 01/13/22 17:01 92 01/13/22 17:00 142/91 H 01/13/22 16:59 92 01/13/22 16:32 94 01/13/22 16:32 137/91 01/13/22 15:30 86 22 94 01/13/22 15:00 88 25 H 95 01/13/22 14:45 82 19 94 01/13/22 15:10 70 99 Room Air 01/13/22 14:20 37.3 C 90 20 153/97 H 93 Room Air PG Care Time/CCT Total # of Minutes Spent Total Time Spent with Patient: Total time spent is greater than 50% in coordination of care (as documented) at patient's floor/unit and/or counseling patient: Coding Level of Care Code 56253 Initial Inpt Care Lvl 3 Diagnoses Supraglottitis without airway obstruction J04.30 Hypertension I10 Hypercholesterolemia E78.00 Prediabetes R73.03
[2022-01-14] MEDS: CHLORHEXIDINE GLUCONATE 0.12% 480 ML MT SCH ×2 (00:01→08:19)
[2022-01-14] MEDS: dexAMETHasone 4 MG in SYRINGE 0 ML IV SCH ×2 (04:33→11:45)
[2022-01-14] MEDS: AMPICILLIN/SULBACTAM SOD 3,000 MG in 0.9 % SODIUM CHLORIDE 100 ML IV SCH ×2 (07:44→11:55)
--- NOTE | 2022-01-14 12:04 | Discharge Summary ---
Date of Service January 14, 2022 Admission HPI Per Admitting Provider 71 yo female with PMH below presents to the ER due to diffuclty swallowing and having a hoarse voice. Patient had some sort of dental procedure the day prior and required endotracheal intubation. Since then she has been having a sore throat, hoarse voice, and difficulty swallowing water and her pills. She was sent to ER, and evaluated by ENT. ENT recommended steroids, antibiotics. Principal Diagnosis Supraglottitis after general anesthesia Discharge Exam General-alert and oriented x3, no fevers, no chills HEENT-head atraumatic and normocephalic, pupils equal and reactive to light, extraocular muscles intact Neck-no lymphadenopathy or thyromegaly, trachea midline Chest-clear to auscultation percussion. No rales wheezing or rhonchi Cardiac-regular rate and rhythm, normal S1 and S2, no murmurs Abdomen-normal bowel sounds, nontender, no hepatosplenomegaly Extremities-no cyanosis, clubbing, or edema Neuro-cranial nerves II through XII intact, motor and sensory function within normal limits, strength symmetrical , no focal deficits Psych-normal affect, normal mood Discharge Data Allergies Allergy/AdvReac Type Severity Reaction Status Date / Time latex Allergy Unknown RASH Verified 01/13/22 18:11 Sulfa (Sulfonamide Allergy Unknown RASH Verified 01/13/22 18:11 Antibiotics) egg AdvReac Severe TINGLING Verified 01/13/22 18:11 MOUTH, SEVERE NAUSEA, stomach cramps banana AdvReac Unknown Nausea Verified 01/13/22 18:11 broccoli AdvReac Unknown GI SYMPTOMS Verified 01/13/22 18:11 cat dander AdvReac Unknown CONGESTION Verified 01/13/22 18:11 coffee (Coffea arabica) AdvReac Unknown Nausea Verified 01/13/22 18:11 shellfish derived AdvReac Unknown SOME NAUSEA Verified 01/13/22 18:11 Consultations 01/13/22 16:44 Consult Otolaryngology (Head and Neck) Stat 01/13/22 18:35 ED Decision to Admit Stat Ordered Studies 01/13/22 15:09 CT soft tissue neck w con Stat Hospital Course (1) Supraglottitis without airway obstruction: The patient is able to swallow liquids at this point. She is stable. There has been no progression of symptoms. She will be discharged home today. (2) Hypertension: Resume home meds at discharge . She may have to crush her medications and put them in applesauce for a day or 2 (3) Hypercholesterolemia: Resume home meds at discharge (4) Prediabetes: Advance clear liquid diet as tolerated to previous diet Plan Discharge to home today, January 14. Crushed medications in place in applesauce if needed. Follow-up with maxillofacial surgery as planned Total Time Total Time Spent Total Time Spent (In Minutes): 35 minutes Discharge Plan Discharge Items Patient Disposition: Home - Self-Care Reason For Visit: SUPRAGLOTTIS Discharge Diagnosis: Supraglottitis after intubation for dental procedure Condition on Discharge: Fair Activity: Resume your previous activity Non-emergency contact: Specialist Call non-emergency contact if: your symptoms worsen Follow-up/Referrals: Vita Saunders MD [Primary Care Provider] - Diet: Heart Healthy Addtl Attending Provider Instructions: Advance diet as tolerated to previous diet. Crushed medications if necessary for the next day or 2 and consume them in applesauce Pending Studies at Discharge: No Stand-Alone Forms: My [facility], Smoking Cessation Medications and DC Order Prescriptions: Continued indapamide 1.25 mg tablet 1.25 mg PO QAM Qty: 90 3RF Rx Instructions: take 1 tablet by mouth every morning simvastatin 40 mg tablet 40 mg PO QPM Qty: 90 3RF cholecalciferol (vitamin D3) 1,000 unit tablet,chewable 1,000 units PO QAM ibuprofen [Advil] 200 mg tablet 600 - 800 mg PO Q8 PRN (Reason: Pain) aspirin [Adult Low Dose Aspirin] 81 mg tablet,delayed release (DR/EC) 81 mg PO DAILY alprazolam 0.25 mg tablet 0.25 mg PO DAILY PRN (Reason: anxiety/claustrophobia related to dental appts) Qty: 7 0RF metformin 500 mg tablet extended release 24 hr 500 mg PO BID Qty: 180 3RF Rx Instructions: on hold losartan 50 mg tablet 50 mg PO QAM Qty: 90 3RF fluticasone propionate 50 mcg/actuation spray,suspension 2 sprays INTNAS DAILY PRN (Reason: Congestion) Label Comments: THIS TIME OF YEAR IT'S PRETTY MUCH EVERY DAY cetirizine 10 mg capsule 10 mg PO QPM Gaviscon 80-14.2 mg tablet,chewable 1 tab PO TID PRN (Reason: Gi Upset) amoxicillin 500 mg capsule 2,000 mg PO DIRECTED Rx Instructions: Take 1 hr before dental apt. amoxicillin 500 mg capsule 500 mg PO TID Rx Instructions: take for 7 days, filled 01/12/22 chlorhexidine gluconate 0.12 % mouthwash 0 ml PO DIRECTED cyanocobalamin (vitamin B-12) [Vitamin B-12] 1,000 mcg Tablet 1,000 mcg PO QAM Discharge Orders: Discharge Order (Routine); Ordered 01/14/22 Ordered By: Angel Valerio Admission Data Admit Date/Time: 01/13/22 18:55 Attending Provider: Angel Valerio Admit Provider: Jim Hayden Primary Care Provider: Vita Saunders Other Providers: Sina Badillo ; Jim Hayden Coding Level of Care Code D/C DAY MANAGEMENT >30 MINS Diagnoses Supraglottitis without airway obstruction J04.30 Hypertension I10 Hypercholesterolemia E78.00 Prediabetes R73.03
== END 2022-01-14 12:47 | disposition home or self-care (01) | DRG 206 ==
LOC: ED 14:08 → 2S 18:55 → SUATTDRO 18:55 → 2S 22:41

== ENCOUNTER 2024-02-12 09:01 | Observation (INO) ==
--- NOTE | 2023-12-07 15:42 | PAT Medication Instructions ---
Medication Instructions Date of Service December 07, 2023 Home Medications Medication Instructions Recorded alprazolam 0.25 mg tablet 0.25 mg PO DAILY PRN 05/18/22 anxiety/claustrophobia related to dental appts #7 tabs simvastatin 40 mg tablet 40 mg PO QPM #90 tabs 08/31/23 indapamide 1.25 mg tablet 1.25 mg PO QAM #90 tabs 09/13/23 famotidine 20 mg tablet 20 mg PO DAILY PRN acid reflux #90 09/19/23 tabs olmesartan 20 mg tablet 20 mg PO DAILY #90 tabs 09/19/23 fluticasone propionate 50 mcg/actuation nasal spray,suspension 2 sprays intranasal DAILY PRN Congestion cholecalciferol (vitamin D3) 25 mcg (1,000 unit) chewable tablet 1,000 units PO QAM Al hyd-Mg tr-alg ac-sod bicarb 80 mg-14.2 mg chewable tablet (Gaviscon) 1 tab PO TID PRN Gi Upset cetirizine 10 mg capsule 10 mg PO QPM cyanocobalamin (vitamin B-12) 1,000 mcg tablet (Vitamin B-12) 1,000 mcg PO QAM hydrocortisone 1 %-iodoquinol 1 % topical cream 1 applic topical DAILY PRN as directed alprazolam 0.25 mg tablet 0.25 mg PO DAILY PRN anxiety/claustrophobia related to dental appts acetaminophen 500 mg tablet (Tylenol Extra Strength) 650 mg PO Q8H PRN Pain aspirin 81 mg tablet,delayed release (Adult Low Dose Aspirin) 81 mg PO DAILY simvastatin 40 mg tablet 40 mg PO QPM indapamide 1.25 mg tablet 1.25 mg PO QAM famotidine 20 mg tablet 20 mg PO DAILY PRN acid reflux olmesartan 20 mg tablet 20 mg PO DAILY biotin 1 mg capsule 1 mg PO DAILY hydrocortisone 2.5 % topical ointment 1 applic topical BID Continue as directed alprazolam 0.25 mg tablet 0.25 mg PO DAILY PRN anxiety/claustrophobia related to dental appts (if needed) ASK your prescriber and surgeon aspirin 81 mg tablet,delayed release (Adult Low Dose Aspirin) 81 mg PO DAILY STOP taking 24 hours before surgery hydrocortisone 1 %-iodoquinol 1 % topical cream 1 applic topical DAILY PRN as directed hydrocortisone 2.5 % topical ointment 1 applic topical BID DO NOT take the morning of surgery cholecalciferol (vitamin D3) 25 mcg (1,000 unit) chewable tablet 1,000 units PO QAM Al hyd-Mg tr-alg ac-sod bicarb 80 mg-14.2 mg chewable tablet (Gaviscon) 1 tab PO TID PRN Gi Upset cyanocobalamin (vitamin B-12) 1,000 mcg tablet (Vitamin B-12) 1,000 mcg PO QAM indapamide 1.25 mg tablet 1.25 mg PO QAM olmesartan 20 mg tablet 20 mg PO DAILY biotin 1 mg capsule 1 mg PO DAILY Take morning of surgery With a small sip of water, OTHERWISE NOTHING TO EAT OR DRINK AFTER MIDNIGHT: fluticasone propionate 50 mcg/actuation nasal spray,suspension 2 sprays intranasal DAILY PRN Congestion (if needed) acetaminophen 500 mg tablet (Tylenol Extra Strength) 650 mg PO Q8H PRN Pain (if needed) aspirin 81 mg tablet,delayed release (Adult Low Dose Aspirin) 81 mg PO DAILY famotidine 20 mg tablet 20 mg PO DAILY PRN acid reflux (if needed) Take evening before surgery fluticasone propionate 50 mcg/actuation nasal spray,suspension 2 sprays intranasal DAILY PRN Congestion (if needed) Al hyd-Mg tr-alg ac-sod bicarb 80 mg-14.2 mg chewable tablet (Gaviscon) 1 tab PO TID PRN Gi Upset (if needed) cetirizine 10 mg capsule 10 mg PO QPM acetaminophen 500 mg tablet (Tylenol Extra Strength) 650 mg PO Q8H PRN Pain (if needed) simvastatin 40 mg tablet 40 mg PO QPM famotidine 20 mg tablet 20 mg PO DAILY PRN acid reflux (if needed) Other Notes If you have any questions please call us at [phone] or [phone] or [phone] or [phone]
--- NOTE | 2023-12-17 13:02 | Anesthesiology Consultation ---
Date of Service December 17, 2023 Assessment & Plan (1) Encounter for pre-operative examination: - Infectious disease screening: Per assessment on 12/17/23: No known recent infectious disease contacts or current infectious disease symptoms. - Outpatient joint assessment: Pt currently scheduled for inpatient pathway. If surgeon requests review for outpatient joint pathway, patient is not recommended candidate for outpatient joint program from anesthesia standpoint based on available information. - Preop CXR: Done 12/18/23. Notes "A few bibasilar linear densities which are nonspecific. This favors subsegmental atelectasis or scarring. A pneumonia also remains in the differential diagnosis in the appropriate clinical setting." Workload message sent to PCP. Awaiting PCP CXR response + surgeon-ordered PCP preop evaluation (MOHAMUD, appt 12/26). Chart Review Chart Review: Patient seen in Pre Admission Testing Teaching & Discussion Pre-Anesthesia Teaching/Discussion Notes: Instructed NPO after midnight before surgery,except medications with 15 cc of water. Medication instructions provided according to the PAT guidelines. History Surgery Operation Date: 01/15/24 07:00 Proposed Procedures p Left Total Knee Arthroplasty - Michael Fulton MD Height/Weight Height: 5 ft 5 in Weight: 95.9 kg Allergies Allergy/AdvReac Type Severity Reaction Status Date / Time latex Allergy Unknown Rash Verified 12/17/23 12:50 Sulfa (Sulfonamide Allergy Unknown Rash Verified 12/17/23 12:50 Antibiotics) egg AdvReac Severe Mouth Verified 12/17/23 12:50 tingling, severe, nausea, adominal cramps banana AdvReac Unknown Nausea Verified 12/05/23 13:05 broccoli AdvReac Unknown GI symptoms Verified 12/17/23 12:50 cat dander AdvReac Unknown Congestion Verified 12/17/23 12:50 coffee (Coffea arabica) AdvReac Unknown Nausea Verified 12/05/23 13:05 shellfish derived AdvReac Unknown Nausea Verified 12/17/23 12:50 Medications Home Medications Medication Instructions Recorded Confirmed Last Taken fluticasone propionate 50 2 sprays intranasal DAILY PRN 01/03/19 12/05/2308/11 06:30 mcg/actuation nasal Congestion spray,suspension cholecalciferol (vitamin D3) 25 1,000 units PO QAM 04/10/19 12/05/23 08/10/21 10:00 mcg (1,000 unit) chewable tablet Al hyd-Mg tr-alg ac-sod bicarb 80 1 tab PO TID PRN Gi Upset 08/20/19 12/05/23 Unknown mg-14.2 mg chewable tablet (Gaviscon) cetirizine 10 mg capsule 10 mg PO QPM 08/29/19 12/05/23 08/10/21 23:00 cyanocobalamin (vitamin B-12) 1,000 mcg PO QAM 08/01/21 12/05/23 08/04/21 10:00 1,000 mcg tablet (Vitamin B-12) hydrocortisone 1 %-iodoquinol 1 % 1 applic topical DAILY PRN as 02/04/22 Unknown topical cream directed alprazolam 0.25 mg tablet 0.25 mg PO DAILY PRN 05/18/22 12/05/23 Unknown anxiety/claustrophobia related to dental appts #7 tabs acetaminophen 500 mg tablet 650 mg PO Q8H PRN Pain 07/21/22 12/05/23 Unknown (Tylenol Extra Strength) aspirin 81 mg tablet,delayed 81 mg PO DAILY 02/13/23 12/05/23 Unknown release (Adult Low Dose Aspirin) simvastatin 40 mg tablet 40 mg PO QPM #90 tabs 08/31/23 12/05/23 Unknown indapamide 1.25 mg tablet 1.25 mg PO QAM #90 tabs 09/13/23 12/05/23 Unknown famotidine 20 mg tablet 20 mg PO DAILY PRN acid reflux #90 09/19/23 12/05/23 Unknown tabs olmesartan 20 mg tablet 20 mg PO DAILY #90 tabs 09/19/23 12/05/23 Unknown biotin 1 mg capsule 1 mg PO DAILY 12/05/23 12/05/23 Unknown hydrocortisone 2.5 % topical 1 applic topical BID 12/05/23 12/05/23 Unknown ointment Past Medical History Medical History Anxiety Chronic sinusitis Chronic venous insufficiency CKD (chronic kidney disease), stage III Claustrophobia "Can tolerate oxygen mask" GERD (gastroesophageal reflux disease) H/O sleep study Sleep study done 12/05/23- patient has not received results HTN (hypertension) Hypercholesteremia Obesity (BMI 30-39.9) Osteoarthritis Osteopenia Prediabetes Seasonal allergies Varicose veins of both lower extremities s/p vein ligation Exercise / Class Metabolic Activity III < 4 Walking/Shop/Light housework Past Family History Family History Brother Family history of diabetes mellitus Myocardial infarction Grandmother (Maternal) Family history of diabetes mellitus Myocardial infarction Sister Breast cancer Father Myocardial infarction Grandmother (Paternal) Myocardial infarction Uncle Myocardial infarction 4 uncles(Maternal) Denies family history of Ovarian cancer Prostate cancer Colorectal cancer Past Surgical History Surgical History History of anesthesia reaction (40 years ago): Patient states was done under [place]. Patient states no issue during the but reports that in the recovery area, she could hear everything but couldn't move, was hyperventilating. No similar issues with subsequent surgeries/anesthesia. Dental procedure (2021): Patient states throat irritation from ET tube after tooth extraction/dental implant History of section x1 History of colonoscopy History of dilatation and curettage History of esophagogastroduodenoscopy (EGD) History of ligation of vein left History of tooth extraction Hx of oral surgery dental implants S/P hip replacement Right DORIS (08/11/2021): SAB at L3-4, 1 attempt at [facility]. No issues noted per post-op anesthesia progress note. Past Anesthesia History Other * (40 years ago): Patient states was done under [place]. Patient states no issue during the but reports that in the recovery area, she could hear everything but couldn't move, was hyperventilating. No similar issues with subsequent surgeries/anesthesia. * Dental procedure (2021): Patient states throat irritation from ET tube after tooth extraction/dental implant. Social History Smoking Status: Never smoker Do You Dip or Chew Tobacco: No Hx Alcohol Use: No Hx Substance Use: No substance use type: does not use Review of Systems Rare palpitations. Patient denies chest pain, shortness of breath, fever, chills, cough, wheezing. Physical Exam Vital Signs BP 102/69 P 84 SP02 95%RA RESP 18 Physical Full cervical extension range of motion. Full TMJ range of motion. TMD > 3.5 finger breaths Mallampati Score I Dentition: intact, + implants, 2 bridges left upper/lower, + crowns, upper front veneer Lungs: clear throughout to auscultation Cardiac: regular rate and rhythm, no murmurs noted Spine: normal Carotid arteries: negative bruit Extremities: no LE edema Lab Results Anesthesia Preop Results Results Anesthesia Widget: WBC 6.33 K/ul (4.8-10.8) 12/17/23 Hgb 12.4 g/dl (12.0-16.0) 12/17/23 Hct 37.7 % (37.0-47.0) 12/17/23 Plt 238 K/uL (130-400) 12/17/23 Na 141 mmol/L (136-145) 12/17/23 K 3.5 mmol/L (3.5-5.1) 12/17/23 Cl 106 mmol/L (98-107) 12/17/23 CO2 28 mmol/L (21-32) 12/17/23 BUN 23 mg/dl (6-23) 12/17/23 Creat 1.09 mg/dl (0.6-1.2) 12/17/23 Glucose Level 110 mg/dl (70-99(Fasting)) H 12/17/23 PT 10.9 Seconds (9.0-12.0) 12/17/23 PTT 29 Seconds (21-31) 12/17/23 INR 1.0 (0.9-1.1) 12/17/23 HA1c 5.9 % (4.5-5.6) H 12/17/23 Blood Type A Positive 12/17/23 Antibody Screen NEGATIVE 12/17/23 Testing Electrocardiogram Date: 12/17/23 NSR at 79bpm. Low voltage QRS. Cannot r/o anterior infarct, age undetermined. unconfirmed report. Chest X-Ray Date: 12/17/23 FINDINGS: A few bibasilar linear densities consistent with subsegmental atelectasis or scarring. Otherwise, the lungs are clear. There are low lung volumes. The cardiac silhouette is top normal in size. No pleural effusions. No pneumothorax. No evidence for pulmonary edema. Degenerative changes within the shoulders. IMPRESSION: A few bibasilar linear densities which are nonspecific. This favors subsegmental atelectasis or scarring. A pneumonia also remains in the differential diagnosis in the appropriate clinical setting.
[~2024-02-12 09:01] MED LIST changes: -BUPIVACAINE 0.5 % 5 MG/1 ML PF 10ML VIAL ONE; +GABAPENTIN 300 MG CAP PO SCH; +METOCLOPRAMIDE HCL 10 MG TABLET PO SCH; +ROPIV 0.5% 246mg, Ketorolac 30mg, EPINEPHrine 0.5mg in NSS INFIL SCH; -ROPIVACAINE 0.5% HCL/PF 150 MG, BUPIVACAINE 0.75% MPF 20 ML, EPINEPHrine 0.15 MG, Ketor... INFIL SCH; -Scopolamine 1 MG TDSY TD SCH; -TRANEXAMIC ACID 1,000 MG **IV Intra-op IV SCH; -dexAMETHasone 4 MG TAB PO SCH; +dexAMETHasone**PF** 10 MG/ML VIAL IV SCH; +oxyCODONE HCL 10 MG TABCR (OxyCONTIN) PO SCH
[2024-02-12] MEDS: ACETAMINOPHEN 500 MG TAB PO SCH (09:40)
[2024-02-12] MEDS: dexAMETHasone**PF** 10 MG/ML VIAL IV SCH (09:40)
[2024-02-12] MEDS: GABAPENTIN 300 MG CAP PO SCH (09:41)
[2024-02-12] MEDS: FAMOTIDINE 20 MG TAB PO SCH (09:41)
[2024-02-12] MEDS: traMADol HCL 50 MG TABLET PO SCH (09:41)
[2024-02-12] MEDS: METOCLOPRAMIDE HCL 10 MG TABLET PO SCH (09:41)
[2024-02-12] MEDS: LR 60ML/HR IV SCH (09:41)
[2024-02-12] MEDS: oxyCODONE HCL 10 MG TABCR (OxyCONTIN) PO SCH (09:41)
[2024-02-12] MEDS: LR 500ML BOLUS, THEN 15ML/HR IV SCH (10:15)
[2024-02-12] MEDS ORDERED: HYDROmorphone INJ 1 MG/ML SYRINGE IV PRN ×2 (10:46→17:42)
[2024-02-12] MEDS ORDERED: ATROPINE SULFATE 0.1 MG/ML 10ML SYR IV PRN (10:46)
[2024-02-12] MEDS ORDERED: ePHEDrine sulfate 50 MG/ML AMP IV PRN (10:46)
[2024-02-12] MEDS ORDERED: PROMETHAZINE HCL 6.25 MG in SODIUM CHLORIDE 0.9% 50 ML IV PRN (10:46)
[2024-02-12] MEDS: TRANEXAMIC ACID 1,000 MG **IV Pre-op IV SCH (11:55)
--- NOTE | 2024-02-12 12:00 | History & Physical Bridge Note ---
Date of Service February 12, 2024 History & Physical Bridge Note I have examined the patient, reviewed the History & Physical and in the interval since the performance of the History & Physical I have noted the following changes of clinical significance: no changes noted
[2024-02-12] MEDS: ceFAZolin 2000MG 2,000 MG/15 ML SYR IV SCH ×2 (12:31→21:01)
[2024-02-12] MEDS: ROPIV 0.5% 246mg, Ketorolac 30mg, EPINEPHrine 0.5mg in NSS INFIL SCH (13:01)
[2024-02-12] MEDS: ORTHO JOINT ANESTHETIC ONE (13:01)
[2024-02-12] MEDS: VANCOMYCIN HCL 1000MG/20ML VIAL ONE (15:08)
--- NOTE | 2024-02-12 16:13 | Operative Report ---
Post Operative Report Pre & Post Diagnosis Operation Date: 02/12/24 11:10 Pre-Op Diagnosis: Left Knee Osteoarthritis Post-Op Diagnosis: Left Knee Osteoarthritis I identified the patient and participated in the time-out.: Yes Procedure Operation Date: 02/12/24 11:10 Actual Procedures p Left Total Knee Arthroplasty(Left) - Michael Fulton MD Surgeon Michael Fulton MD Director Payment Kadie Baptiste and Yevgeniy Mcgovern physicians marketing operations assistant. No resident or fel Estimated Blood Loss 10 Findings Consistent with Post-Op Diagnosis Specimens Resected bone and soft tissue left knee Anesthesia Type MAC Spinal Regional Complications none Disposition Accompanied Patient To Recovery: No Disposition: Recovery Room Indications Catina is 73 years old. She has severe lateral compartment arthritis of her left knee refractory to nonsurgical treatment. She wished to proceed with surgery. She had a recent dental extraction. Her socket is healed and she is off antibiotics. Description of Procedure Informed consent. Patient identified. She identified the procedure site as the left knee. I marked with my initials. A preoperative surgical Timeout is performed. A preop dose of IV antibiotics was given. She was taken to the operating room positioned supine on the OR table. A tourniquet on the left thigh. Padded bump under the left calf. The leg was prepped and draped in the usual sterile fashion. DVT prophylaxis intraoperatively with foot pumps. Postop early mobility foot pumps and Eliquis. The exam under anesthesia demonstrated range of motion of 0 to approximately 110 degrees. There was trace LCL laxity at 20 degrees knee flexion the knee was otherwise stable with slight valgus alignment. TXA given. Routine prep and drape. Limb exsanguinated with the Esmarch. Tourniquet inflated to 300 mmHg. A midline longitudinal incision was made followed by medial parapatellar arthrotomy. There was a well demarcated shiny prepatellar bursal cavity which was removed as encountered without elevating skin flaps. Retropatellar fat pad resected. Soft tissue on the anterior aspect of the distal femur was resected. Minimal medial release was performed in order to expose the knee.Good how he might the knee was flexed. Marginal osteophytes throughout the knee both medial and lateral were removed. The cruciate ligaments were intact and were resected. The lateral compartment showed central wear on the tibia with bone nonpayment bone changes and mild hypoplasia of the lateral femoral condyle. The medial compartment was mildly arthritic with i ntact cartilage. The patella demonstrated large marginal osteophytes and significant wear of the lateral facet. Osteophytes were resected. The patella measured 17 mm in thickness on the medial side and 12 mm or less on the lateral side. The tibia was subluxated. A airline pilot/first officer hole was drilled into the proximal tibia just in front of and between the tibial spines. An intramedullary alignment luisana was inserted. The guide was aligned to the tibial tubercle and set to take about 8 mm medially which corresponded to a 4 mm cut laterally. The guide was pinned in place. The alignment was checked with the extra medullary alignment luisana and found to be in good position although I placed a third stabilizing pin to prevent any toggle of the jig. The slope was appropriate. The alignment intersected the second ray and bisected the ankle joint with the knee in full extension. The cut was then made and sized to a 4. Marginal osteophytes were removed. I then drilled a airline pilot/first officer hole in the distal femur. Intramedullary alignment luisana was inserted. The guide was set to 5 degrees left knee valgus based upon preop templating and 9 mm thick cut. This cut was made. The extension gap was asymmetric. It was less than a 5 on the lateral side but a tight 5 medially. I did an inverted cruciform release. I released the IT band longitudinally and then released the tissues from the LCL out to the patellar tendon transversely at the level of the joint line. This improved slightly however the major impediment at this point was palpably taut LCL. I went ahead and released the posterior capsule to try to improve things as well and this gave a minimal improvement as well. Still has asymmetric extension gap. I therefore carefully started to elevate a sleeve off of the lateral epicondyle releasing the popliteus and LCL piecemeal. I would then check the extension gap after releasing a little bit several times. I released about half to two thirds of the lateral complex. At this point I had a mixed symmetrical extension gap and could insert the 5 mm block without difficulty. The epicondylar axis was marked out. Distal femoral sizing guide was applied and sized to a 4. The block was pinned in place and the cuts were made protecting the collateral ligaments. Osteophytes under the collateral ligaments were removed. The knee was stable in full extension with the block in place. The flexion gap was rectangular. The orientation of the jig matched the epicondylar axis. It was pinned into place and the cuts were made. Osteophytes in the back the knee were removed. The flexion gap at this point was easily a 8 or a 10. I could get up to an 8 and extension but I think could get likely a 12 in on the flexion gap. I therefore went ahead and rehung the distal femoral cutting block took 2 additional millimeters off the distal femur and recut the chamfers as well. This gave an 10 mm flexion and extension gap. Perhaps 12 in flexion. The box cutting guide was applied lateralized and the box cut was made. The trial femur was applied and lug hole drilled. Tibia was prepared by aligning to the lateral tibial plateau and then prepared with the revision tibial tray drill short reamer and punch. Trialing was then performed with a 10 which gave full extension trace mid position LCL laxity and a couple millimeters of LCL laxity in flexion. Attention was turned to the patella. The 35 mm patella was selected. This was 9.5 mm in thickness. The guide was set to preserve 14 mm of bone. The cut was made and the residual patellar thickness was 14 mm. The lateral half was a concavity which was contained. The sclerotic bone was scraped with a curette. The medial portion/half was raw cut bone surface. The patellar paddle was aligned with the knee in slight flexion in the stockbridge position and the lug holes were drilled. Patellar tracking was fine with no hands. The tourniquet was let down. Components were removed. Ortho joint mix was injected in the back the knee. The tibial canal was plugged. Irrigation was performed. Tourniquet was let down for 10 minutes. It was reexsanguinated with the Esmarch. Spacer block in place. The joint surfaces were then prepared with pulsatile lavage and dried. 2 bags of Simplex P cement with 2 total grams of vancomycin were mixed on the back table for 1 minute. Smears were placed on the posterior condyles. The femur was cemented into place followed by the tibia cementing the stem and then the patella. The lateral patellar defect was filled with cement and flush positioning of the patella was ensured. Irrigation was performed and the remainder the Ortho joint mix was injected. The tourniquet was then let down after 125 minutes of total inflation. Meticulous hemostasis was performed. There was not significant bleeding present. Back the knee was inspected for cement removed as encountered. The composite patellar thickness was 23 mm. Trialing again was performed with a 10 and eventually the 12 mm. I thought the 12 gave better fit and fill and the lateral flexion gap although it still was a trace bit lax. Some medial releasing was performed. The knee was fully extended. There was trace varus laxity at 20 degrees knee flexion. Fully extended neutral alignment. No flexion contracture. Stable at 0 to varus valgus. Irrigation performed. The extensor mechanism was closed above the equator patella with interrupted #2 Vicryl FiberWire. Below the equator the patella with running and interrupted #1 Vicryl. The skin was closed in layers with 0 and 2-0 Vicryl and clare on the skin. I have a gram of Vanco was applied within the joint and a half on the surface of the extensor mechanism. The leg was cleaned with wet and dry sponges and a saw sterile dressing was applied Xeroform 4 x 4's ABD soft wrap full-length Clifton wrap. Knee immobilizer. She will be placed into a wound VAC tomorrow. Rehab according to standard total knee protocol. Weightbearing as tolerated. Components inserted were the J&J attune left size 4 posterior stabilized femur a size 4 mobile-bearing revision tibial tray 35 mm medialized dome patella. A size 4 x 12 mm thick polyethylene rotating platform insert. Eliquis to begin the morning. I attest to the content of the Intraoperative Record and any orders documented therein. Any exceptions are noted below.
--- NOTE | 2024-02-12 16:21 | Operative Report ---
Post Operative Report Pre & Post Diagnosis Operation Date: 02/12/24 11:10 Pre-Op Diagnosis: Left Knee Osteoarthritis Post-Op Diagnosis: Left Knee Osteoarthritis I identified the patient and participated in the time-out.: Yes Procedure Operation Date: 02/12/24 11:10 Actual Procedures p Left Total Knee Arthroplasty(Left) - Michael Fulton MD Surgeon Michael Fulton M.D. Tank Hoop Bender Kadie Baptiste PA-C & Yevgeniy Castrejon PA-C; no fellow or resident avail Estimated Blood Loss 10 Findings Consistent with Post-Op Diagnosis Specimens bone and soft tissue Anesthesia Type MAC Spinal Regional Description of Procedure Patient was taken the operating room placed under spinal anesthesia with peripheral nerve block and IV sedation. She was given 2 g of IV Ancef preoperatively and 1 g of IV TXA preoperatively. Timeout was performed. She was prepped and draped in routine sterile fashion. Is present during entire case and assisted with positioning, draping, tissue retraction, trialing of implants, implantation of hardware, hemostasis, irrigation, closure and dressings. Please see Dr. Fulton's operative report for further details regarding today's procedure. Patient was awakened and transferred to the recovery room in stable condition. I attest to the content of the Intraoperative Record and any orders documented therein. Any exceptions are noted below.
--- NOTE | 2024-02-12 16:22 | Operative Report ---
Post Operative Report Pre & Post Diagnosis Operation Date: 02/12/24 11:10 Pre-Op Diagnosis: Left Knee Osteoarthritis Post-Op Diagnosis: Left Knee Osteoarthritis I identified the patient and participated in the time-out.: Yes Procedure Operation Date: 02/12/24 11:10 Actual Procedures p Left Total Knee Arthroplasty(Left) - Michael Fulton MD Surgeon Michael Fulton MD Physician Relations Specialist Kadie Baptiste and Yevgeniy Castrejon PA-C. Estimated Blood Loss 10 Findings Consistent with Post-Op Diagnosis Specimens bone and soft tissue Description of Procedure I was present during the entire case. I assisted with prepping, draping, retraction, wound closure, and dressing application. Please refer to Dr. Fulton's procedure note for full details. I attest to the content of the Intraoperative Record and any orders documented therein. Any exceptions are noted below.
--- NOTE | 2024-02-12 17:10 | XRay Report ---
TWO VIEWS LEFT KNEE CLINICAL HISTORY: Postoperative examination. FINDINGS: AP and crosstable lateral portable views of the left knee are obtained. A left knee arthrop lasty is in near anatomic alignment. There has been undersurface remodeling of the patella. No acute fracture is seen. There are expected postoperative changes around the knee including skin clips, soft tissue edema, and subcutaneous gas. IMPRESSION: Expected postoperative changes status post left knee arthroplasty. No acute fracture is s een. ACT 112: Negative or not required by law. Electronically signed by: Wade Guillaume M.D. 02/12/2024 5:09 PM
--- NOTE | 2024-02-12 17:11 | Anesthesiology Progress Note ---
Date of Service February 12, 2024 Anesthesia Post Procedure Vital Signs Vital Signs: Temp Pulse Pulse Resp BP Pulse Ox O2 Del Method 02/12/24 17:05 79 12 103/71 96 Nasal Cannula 02/12/24 16:55 36.5 C 81 16 118/66 95 Room Air 02/12/24 16:45 82 12 104/78 95 Oxymask 02/12/24 16:35 81 14 101/70 95 Oxymask 02/12/24 16:25 87 12 115/68 95 Oxymask 02/12/24 16:19 36.5 C 89 14 114/93 95 Oxymask 02/12/24 09:30 36.6 C 84 20 142/90 H 96 Room Air O2 Flow Rate 02/12/24 17:05 2 02/12/24 16:55 02/12/24 16:45 4 02/12/24 16:35 4 02/12/24 16:25 4 02/12/24 16:19 6 02/12/24 09:30 Transfer of Care Handoff Completed per policy Notes Mental Status: alert / awake / arousable and participated in evaluation Patient Amnestic to Procedure: Yes Nausea / Vomiting: adequately controlled Pain: adequately controlled Airway Patency, RR, SpO2: stable & adequate BP & HR: stable & adequate Hydration State: stable & adequate Anesthetic Complications: no major complications apparent and Pt Satisfied with anesthetic care
[2024-02-12] MEDS ORDERED: [UNRECOGNIZED DRUG - OTHER] PO PRN (17:42)
[2024-02-12] MEDS ORDERED: ALUMINUM/MAGNESIUM SUSP 30 ML UDC PO PRN (17:42)
[2024-02-12] MEDS ORDERED: traMADol HCL 50 MG TABLET PO PRN (17:42)
[2024-02-12] MEDS ORDERED: NALOXONE HCL 0.4 MG/1 ML VIAL/CARP IV PRN (17:42)
[2024-02-12] MEDS ORDERED: bisacodyL 10 MG SUPP PR PRN (17:42)
[2024-02-12] MEDS ORDERED: ONDANSETRON INJ 2 MG/ML 2 ML VIAL IV PRN (17:42)
[2024-02-12] MEDS ORDERED: METOCLOPRAMIDE HCL INJ 5 MG/ML 2 ML VIAL IV PRN (17:42)
[2024-02-12] MEDS ORDERED: MAGNESIUM HYDROXIDE SUSP 30 ML UDC PO PRN (17:42)
[2024-02-12] MEDS ORDERED: FLUTICASONE PROPIONATE NA SPR 16 GM BTL NAE PRN (17:42)
[2024-02-12] MEDS ORDERED: hydrALAZINE HCL 20 MG/ML VIAL IV PRN (17:42)
[2024-02-12] MEDS ORDERED: HYDROmorphone INJ 0.5 MG/0.5 ML SYR IV PRN (17:42)
[2024-02-12] MEDS: KETOROLAC TROMETHAMINE 15 MG/ML VIAL IV SCH (18:20)
[2024-02-12] MEDS: SIMVASTATIN 40 MG TAB PO SCH (21:03)
[2024-02-12] MEDS: CETIRIZINE HCL 10 MG TABLET PO SCH (21:03)
[2024-02-12] MEDS: oxyCODONE HCL IR 5 MG TAB (IMMEDIATE RELEASE) PO PRN (21:09)
[2024-02-12] MEDS: DOCUSATE SODIUM 100 MG CAP PO SCH (21:10)
[2024-02-12] MEDS: SENNA 8.6 MG TAB PO SCH (21:10)
[2024-02-13] MEDS: TRANEXAMIC ACID / 0.7% NACL 1,000 MG/100 ML BAG IV SCH (00:05)
[2024-02-13] MEDS: ACETAMINOPHEN 500 MG TAB PO SCH (00:09)
[2024-02-13 07:16] LABS: Hematocrit (blood only) 32.7 % (37.0-47.0); Mean Corpuscular Hemoglobin 30.1 pg (25.0-34.0); Mean Corpuscular Hgb Conc 33.6 g/dL (32.0-36.0); Mean Corpuscular Volume 89.3 fL (80.0-100.0); Mean Platelet Volume 10.3 fL (9.4-12.4); Platelet Count 180 K/uL (130-400); RDW Coefficient of Variation 13.4 % (11.5-14.5); RDW Standard Deviation 43.9 fL (36.4-46.3); Red Blood Count 3.66 M/uL (4.20-5.40); White Blood Count 13.37 K/ul (4.8-10.8)
[2024-02-13 07:22] LABS: Calcium 8.8 mg/dl (8.6-10.3); Potassium 4.4 mmol/L (3.5-5.1)
[2024-02-13 07:28] LABS: BUN Creatinine Ratio 25.4 (10-20)
[2024-02-13] MEDS: LOSARTAN POTASSIUM 50 MG TAB PO SCH (08:25)
[2024-02-13] MEDS: dexAMETHasone 4 MG TAB PO SCH (08:25)
[2024-02-13] MEDS: ASPIRIN 81 MG ECTAB PO SCH (08:25)
[2024-02-13] MEDS: INDAPAMIDE 1.25 MG TAB PO SCH (08:26)
[2024-02-13] MEDS: CHOLECALCIFEROL 25 MCG (1000 UNITS) TAB PO SCH (08:26)
[2024-02-13] MEDS: CYANOCOBALAMIN (B-12) 500 MCG TABLET PO SCH (08:26)
[2024-02-13] MEDS: MULTIVITAMIN TAB PO SCH (08:26)
[2024-02-13] MEDS: APIXABAN 2.5 MG TAB PO SCH (08:26)
[2024-02-13] MEDS ORDERED: NON-FORMULARY MEDICATION (Biotin 1 mg Capsule) PO SCH (09:00)
--- NOTE | 2024-02-13 09:36 | Orthopedic Progress Note ---
Date of Service February 13, 2024 Assessment & Plan (1) Knee joint replacement status: Plan: She is doing well. PT and OT. Her Eliquis is started this morning. Postop antibiotics. Will reassess her oxygenation later this morning. If she passes criteria then we can consider discharge. We talked about home health services rehab elevation icing medications follow-up at [facility]. If she remains with low O2 sats on room air we will get a medicine consultation. Her BUN and creatinine are slightly elevated. Will continue IV and oral hydration. Radiographs show good positioning of components and no evidence of complication. Admission and Anticipated Discharge Date Admission Date: February 12, 2024 Subjective Doing well. Pain is well-controlled. She denies chest pain shortness of breath or tach difficulty breathing. She ate breakfast. She has been up to the bathroom. Therapy is pending. Nurse reports O2 sats 88% on room air. She had sats over 90% preop. Physical Exam Physical Exam: Some bloody drainage from her dressing when it is changed. Distally. No significant fluid accumulation. The wound is cleaned and a wound VAC is applied. She has full extension with and intact leg lift. She has 5 out of 5 ankle and toe plantarflexion dorsiflexion eversion strength and palpable pedal pulses with intact sensation throughout the foot. Leg not significantly swollen Results & Data Vital Signs (Past 12 Hours) Vital Signs Temp Pulse Resp BP Pulse Ox O2 Del Method O2 Flow Rate 02/13/24 07:20 Nasal Cannula 3 02/13/24 06:19 37.0 C 80 17 109/73 98 Nasal Cannula 3 02/13/24 04:06 36.1 C L 77 16 135/82 94 Nasal Cannula 3 02/12/24 23:11 36.1 C L 72 16 110/75 92 Nasal Cannula 3 Laboratory Results Laboratory Results WBC 13.37 K/ul (4.8-10.8) H 02/13/24 06:02 RBC 3.66 M/uL (4.20-5.40) L 02/13/24 06:02 Hgb 11.0 g/dl (12.0-16.0) L 02/13/24 06:02 Hct 32.7 % (37.0-47.0) L 02/13/24 06:02 MCV 89.3 fL (80.0-100.0) 02/13/24 06:02 MCH 30.1 pg (25.0-34.0) 02/13/24 06:02 MCHC 33.6 g/dL (32.0-36.0) 02/13/24 06:02 RDW Std Deviation 43.9 fL (36.4-46.3) 02/13/24 06:02 RDW Coeff of Adela 13.4 % (11.5-14.5) 02/13/24 06:02 Plt Count 180 K/uL (130-400) 02/13/24 06:02 MPV 10.3 fL (9.4-12.4) 02/13/24 06:02 Sodium 139 mmol/L (136-145) 02/13/24 06:02 Potassium 4.4 mmol/L (3.5-5.1) 02/13/24 06:02 Chloride 106 mmol/L (98-107) 02/13/24 06:02 Carbon Dioxide 24 mmol/L (21-32) 02/13/24 06:02 Anion Gap 9 (3-11) 02/13/24 06:02 BUN 31 mg/dl (6-23) H 02/13/24 06:02 Creatinine 1.22 mg/dl (0.6-1.2) H 02/13/24 06:02 Est Cr Clr Drug Dosing 47.0 ml/min 02/13/24 06:02 eGFR 46.86 02/13/24 06:02 BUN/Creatinine Ratio 25.4 (10-20) H 02/13/24 06:02 Glucose 119 mg/dl (70-99(Fasting)) H 02/13/24 06:02 Calcium 8.8 mg/dl (8.6-10.3) 02/13/24 06:02 Impressions Knee X-Ray 02/12/24 16:39 TWO VIEWS LEFT KNEE CLINICAL HISTORY: Postoperative examination. FINDINGS: AP and crosstable lateral portable views of the left knee are obtained. A left knee arthroplasty is in near anatomic alignment. There has been undersurface remodeling of the patella. No acute fracture is seen. There are expected postoperative changes around the knee including skin clips, soft tissue edema, and subcutaneous gas. IMPRESSION: Expected postoperative changes status post left knee arthroplasty. No acute fracture is seen. ACT 112: Negative or not required by law. Electronically signed by: Wade Guillaume M.D. 02/12/2024 5:09 PM
[2024-02-13] MEDS: SODIUM CHLORIDE 0.9% 500 ML IV SCH (10:36)
[2024-02-13] MEDS: CeleBREX 200 MG CAP PO SCH (20:25)
[2024-02-13] MEDS: CYCLOBENZAPRINE HCL 10 MG TAB PO STA (23:28)
[2024-02-14 07:56] VITALS: RESP 16
[2024-02-14 08:17] LABS: BUN Creatinine Ratio 31.3 (10-20); Calcium 8.8 mg/dl (8.6-10.3); Creatinine Clr Calc Pharmacy 51.2 ml/min
--- NOTE | 2024-02-14 11:15 | Orthopedic Progress Note ---
Date of Service February 14, 2024 Assessment & Plan (1) S/P total knee arthroplasty: Plan: Postop day 2-left TKA by Dr. Fulton May be out of bed as tolerated. Use walker to assist with ambulation at all times. May discontinue the knee immobilizer. PT and OT still needs done today. Keep Mya in place for 7 days. Eliquis for DVT prophylaxis for 2 to 4 weeks after surgery. CLARK stockings and AV impulse boots while in house. Incentive spirometer every 2 hours while awake. Pain medication as prescribed. Home with home health as arranged. Oxygenation is improved on room air. Sats have held above 90. She is having muscle cramps of the left leg. Muscle relaxer was also helping. We will prescribe this for her to use at home postoperatively. Slight elevation in BUN and creatinine today. Suspect from dehydration. Encouraged oral hydration while at home. Plans for her to be discharged later today after PT and OT. Dr. Fulton present for today's visit. Discharge instructions were reviewed and all questions were answered. Admission and Anticipated Discharge Date Admission Date: February 12, 2024 Vanesa Dominique is resting in bed. Doing well. No complaints of significant pain in her left knee. She did have some muscle cramping through the night and was given a muscle relaxer that really helped her. She denies any lightheadedness, dizziness, chest pains or shortness of breath. She has been out of bed but states it is more "slow going today than yesterday". Overall she feels well enough to go home. Physical Exam Musculoskeletal: Exam of her left knee: No significant edema in her left foot. Her left ankle is full range of motion and normal strength. Dorsalis pedis and posterior tibial pulses are 1+. Normal sensation throughout the left foot and lower leg. She is able to independently straight leg raise her left lower extremity with no extensor lag. The Prevena is in place and functioning. No joint effusion is noted. Results & Data Vital Signs (Past 12 Hours) Vital Signs Temp Pulse Resp BP Pulse Ox O2 Del Method O2 Flow Rate 02/14/24 08:22 92 Room Air 02/14/24 07:55 36.6 C 77 16 104/61 94 Nasal Cannula 2 02/14/24 07:20 Nasal Cannula 2 Laboratory Results 02/14/24 Range/Units 07:36 Sodium 140 (136-145) mmol/L Potassium 4.0 (3.5-5.1) mmol/L Chloride 106 (98-107) mmol/L Carbon Dioxide 27 (21-32) mmol/L Anion Gap 7 (3-11) BUN 35 H (6-23) mg/dl Creatinine 1.12 (0.6-1.2) mg/dl Est Cr Clr Drug Dosing 51.2 ml/min eGFR 51.92 BUN/Creatinine Ratio 31.3 H (10-20) Glucose 104 H (70-99(Fasting)) mg/dl Calcium 8.8 (8.6-10.3) mg/dl
--- NOTE | 2024-02-14 11:41 | Discharge Summary ---
Date of Service February 14, 2024 Discharge Data Procedures Performed Operation Date: 02/12/24 11:10 Actual Procedures p Left Total Knee Arthroplasty(Left) - Michael Fulton MD Hospital Course (1) S/P total knee arthroplasty: Patient was kept in observation at [facility] after undergoing an elective left total knee arthroplasty by Dr. Fulton. Her surgery was performed with spinal anesthesia and a peripheral nerve block. She was given 2 g of IV Ancef for surgical prophylaxis which was continued for 24 hours after surgery. She was also given 1 g of TXA operatively and another dose 6 hours after that initial dose. She tolerated the procedure well without any intraoperative complications. Postoperatively in the recovery room she had x- rays of her left knee which showed a stable left knee prosthesis with no evidence of hardware failure or fracture. She was allowed out of bed, weight- bear as tolerated with the assistance of a walker and a knee immobilizer on her left leg. Her regular home medications were continued. Pain medication as prescribed and consisted of Tylenol, tramadol, oxycodone, Toradol and IV Dilaudid. Physical therapy and Occupational Therapy consults were placed. She was allowed out of bed, weight-bear as tolerated with the assistance of a walker. She did well out of bed with physical therapy and occupational therapy. On postoperative day 1, a Prevena wound VAC was placed on her left knee. The incision was clean, dry and intact. She did have some mild elevation of her BUN and creatinine. She was given a bolus of normal saline. Her BUN and creatinine were rechecked on postoperative day 2. Her creatinine was back to normal but her BUN was still elevated. Oral hydration was encouraged with water and Gatorade. Eliquis was started on postoperative day one; 2.5 mg p.o. twice daily for DVT prophylaxis. She was also provided with thigh-high CLARK stockings and AV impulse boots during her inpatient stay to prevent deep vein thrombosis and embolisms. Due to her inadequate pain control on postoperative day 1 she was kept overnight for pain control. She had Physical therapy and Occupational Therapy on postoperative day 2 and did well out of bed. She was deemed safe for discharge to home. Case management was involved during her stay for Disposition needs. She was discharged to home health in stable condition on postoperative day 2 February 14, 2024 with her spouse. Discharge instructions were reviewed with the patient. All questions were answered. Her home medications were continued and new prescriptions were sent to her pharmacy.
[2024-02-14 12:40] VITALS: BP 106/71; PULSE 78; TEMP 97.7; O2SAT 94
--- OUTSIDE RECORDS SUMMARY | 2024-02-15 01:23 | External Medical Summary | Continuity of Care Document ---
Author Name Unknown Organization [place] [id number] [employer] [place] [id number] Address [address] [place] [id number] Care Team Providers Care Imagery Intelligence Name Role Phone YaritzaVita bhatn Primary Care Physician [phone] Encounter [facility] [id number] Date(s): 02/11/24 - 02/11/24 [facility] [address] [facility] [facility] [address] [place] [address] Encounter Diagnosis Left knee DJD(Discharge Diagnosis) - 02/11/24 Discharge Disposition: Home or Self Care Attending Physician: ETHAN Baptiste, Kadie Martin Referring Physician: MD Donaldo, Michael Duarte Allergies, Adverse Reactions, Alerts Substance Criticality Severity Reaction Reaction Severity Status sulfa drugs Rash Active Cats Active Allergy Not found in Search stomach cramps broccoli, coffee, Active Ragweed sinus symptoms Activ e eggs emesis diarrhea stomach cramps Active bananas stomach cramps Activ e Medications amoxicillin 500 mg oral capsule Start: 08/15/21 11:53:00 AM EDT, 4 cap, PO, As indicated, Disp# 12 cap, Refills: 3, one hour before dental and other procedures as directed, [facility] Start Date: 08/15/21 Status: Ordered aspirin 81 mg oral capsule Start: 10/28/21 9:43:00 AM EDT, 2 tab Start Date: 10/28/21 Status: Ordered biotin Start: 06/14/23 2:26:00 PM EST Start Date: 06/14/23 Status: Ordered cholecalciferol Start: 06/14/23 2:26:00 PM EST Start Date: 06/14/23 Status: Ordered Eliquis 2.5 mg oral tablet Start: 12/25/23 9:20:00 AM EDT, 1 tab, PO, bid, Disp# 28 tab, Refills: 1, Pharmacy: [facility]/pharmacy #[id number], Earliest Fill Date: 01/15/24 Start Date: 12/25/23 Stop Date: 01/22/24 Status: Ordered Euflexxa 10 mg/mL intra-articular solution Start: 07/01/21 11:31:00 AM EST, 20 mg =, intra-articular, q7days, Disp# 6 mL, Refills: 0, m17.12 left knee AO, Note to Pharmacy: send to docZulis office, Pharmacy: [facility] ([facility] Start Date: 07/01/21 Stop Date: 07/22/21 Status: Ordered famotidine 20 mg oral tablet TAKE 1 TABLET ORALLY DAILY NEEDED FOR ACID REFLUX Start Date: 09/28/23 Status: Ordered Flonase 50 mcg/inh nasal spray Start: 01/05/15 10:54:00 AM EDT, 1 spray, each nostril, Daily, in summer Start Date: 01/05/15 Status: Ordered Gaviscon Start: 01/05/15 10:53:00 AM EDT, 2 tab, PO, with meals Start Date: 01/05/15 Status: Ordered Gelsyn-3 16.8 mg/2 mL intra-articular solution Start: 05/28/23 4:58:00 PM EST, 16.8 mg =, intra-articular, q7days, Disp# 6 mL, Refills: 0, 3 syringes for L knee. Please ship to physician's office: Geovanna Woodard. Mati. [address] [place] [address], [place] [address],Note to Pharmacy: L KNEE DJD M17.12, Pharmacy: [facility] ([facility] Start Date: 05/28/23 Stop Date: 06/18/23 Status: Ordered hydrocortisone 2.5% topical ointment Start: 06/14/23 2:42:00 PM EST, 1 appl, topical, bid, Disp# 20 g, Refills: 1, apply to periorbital dermatitis until clear and then as needed; use for up to 10 days, [facility]acy: [facility] #[id number] Start Date: 06/14/23 Status: Ordered hydrocortisone-iodoquinol 1%-1% topical cream Start: 12/09/23 8:34:00 AM EDT, 1 appl, topical, Daily, Disp# 28 g, Refills: 3, apply to dermatitis on the chest and abdomen until clear and then use as needed, Pharmacy: [facility]/pharmacy #[id number] Start Date: 12/09/23 Status: Ordered indapamide 1.25 mg oral tablet Start: 01/03/13 9:47:00 AM EDT, 1 tab, PO, Daily Start Date: 01/03/13 Status: Ordered Kerydin 5% topical solution Start: 12/26/23 1:49:00 PM EDT, 1 appl, topical, Daily, Disp# 10 mL, Refills: 6, Apply to affected toenails once per day for 6 months Start Date: 12/26/23 Stop Date: 06/04/30 Status: Ordered nystatin 100,000 units/g topical powder Start: 06/13/22 3:26:00 PM EST, See Instructions, Disp# 60 g, Refills: 5, apply to skin fold areas in am for dermatitis, [id number] Start Date: 06/13/22 Status: Ordered olmesartan 20 mg oral tablet TAKE 1 TABLET BY MOUTH EVERY DAY Start Date: 09/28/23 Status: Ordered Penlac Nail Lacquer 8% topical solution Start: 01/16/22 8:27:00 AM EDT, 1 appl, topical, Daily, Disp# 6.6 mL, Refills: 4, to affected area, [id number] Start Date: 01/16/22 Stop Date: 05/05/24 Status: Ordered simvastatin 40 mg oral tablet Start: 01/03/13 9:48:00 AM EDT, 1 tab, PO, qhs Start Date: 01/03/13 Status: Ordered Tylenol 8 HR Arthritis Pain Start: 12/25/23 8:28:00 AM EDT Start Date: 12/25/23 Status: Ordered Vitamin B12 Start: 06/14/23 2:26:00 PM EST Start Date: 06/14/23 Status: Ordered Vitamin D2 50,000 intl units (1.25 mg) oral capsule Start: 01/13/19 8:59:00 AM EDT, 1 cap, PO, q7days, Disp# 6 cap, Refills: 0, [facility] [place] [address] Start Date: 01/13/19 Status: Ordered Xanax 0.5 mg oral tablet Start: 01/05/15 10:50:00 AM EDT, 1 tab, PO, Daily, for dentist, PRN: as needed for anxiety Start Date: 01/05/15 Status: Ordered ZyrTEC 10 mg oral tablet Start: 05/11/20 2:52:00 PM EST, 1 tab, PO, Daily, Start Date: 05/11/20 Status: Ordered Mental Status 02/11/24 Barriers to Learning one year None evide nt Mandatory Health Literacy Documentation Yes Health Literacy Communication Barriers N ever Primary Language Panamanian Problem List Condition Confirmation Course Effective Dates Status H ealth Status Informant Back pain Confirmed Active Diabetes Confirmed Active Rash Confirmed Active History of foot fracture Confirmed 12/2018 Active Hyperlipidemia Confirmed Active Hypertension Confirmed Active Incomplete uterovaginal prolapse Confirmed Active Left knee pain Confirmed Active Closed fracture of metatarsal of left foot Confirmed Active Tinea unguium Confirmed Active Left knee DJD Confirmed Active Reflux Confirmed Active Seasonal allergies Confirmed Active Vitamin D deficiency Confirmed Active Diagnosis Diagnosis Type Effective Dates Health Status Cl inical Service Informant Left knee DJD Discharge Diagnosis 02/11/24 Procedures Procedure Date Related Diagnosis Body Site Status 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 08/11/21 Completed Colonoscopy 02/2019 Completed Endovenous laser ablation of varicose vein of lower limb 12/2018 Completed Shave biopsy and cauterization of skin 01/08/18 Completed Endoscopy 10/2014 Completed D&C - Dilatation and curettage 2000 Completed delivery 1984 [facility] ed 1fibroids Vital Signs Most recent to oldest [Reference Range]: 1 Height 162.9 cm (02/11/24 1:06 PM) Patient Weight 95.9 kg (02/11/24 1:06 PM) Body Mass Index 36.14 kg/m2 (02/11/24 1:06 PM) Temperature [36.5-37.9 DegC] 36.4 DegC *LOW* (02/11/24 1:06 PM) Respiratory Rate 20 br/min (02/11/24 1:06 PM) Blood Pressure 116/74mmHg (02/11/24 1:06 PM) Cuff Pulse Pressure 42 mmHg (02/11/24 1:06 PM) Social History Social History Type Response Smoking Status Never smoked cigaret elisa Sex Female Sex Representation Female (finding) Pre-OP H & P * ETHAN Baptiste, Kadie Martin: PERFORM Event Display: Pre-OP H & P Authored Date: [id number] Name:JASON VINES Patient Number:[id number] :1950 Date of Service:02/11/2024 Chief Complaint pre op l tka History of Present Illness Karis Parra presents today for apreoperative history and physical. She is scheduled for left total knee arthroplasty with Dr. Fulton on February 11, 2024. She states that she has pain on a daily basis. Most of her pain is on the outside aspect of herleft knee. Her pain is worse with activities especially with walking. She also gets pain at rest and pain that wakes her up at night. It has been ongoing for many years and progressively worsening over the last 6 to 12 months. She has had previous cortisone injection into the left knee. She also completed a series of viscosupplementation in June 2023 which only provided approximately 2 months of relief. Pain is also on the anterior aspect of her knee. She states that pain can getup to a 9 out of 10 after walking. Currently her today her pain is a 4 out of 10. Due to her failure of conservative treatment and persistently worsening symptoms, she wishes to proceed with an elective left total knee arthroplasty. Her surgery was originally scheduled for January 15, 2024 but she had a tooth that was pulled and not healed so her surgery was postponed. She is currently not having any issues with her teeth. The wound is healed in her gum. She is no longer in antibiotics. She is only doing a chlorhexidine 0.12% swish and spit twice daily. Review of Systems Denies any recent cough, cold, fevers, chills or flulike symptoms. She denies any lightheadedness, dizziness, syncopal episodes, headaches, migraines or seizures. Denies any bleeding or clotting disorders or history of DVT or pulmonary embolism. Denies any recent hospitalizations. Denies any history of metal sensitivity, latex allergy or MRSA. Denies any shortness of breath or chest pain. Denies abdominal pain, heartburn, indigestion, nausea, vomiting,or diarrhea. She does have chronicconstipation. Denies any urinary tract infections. Denies any hearing or vision changes. Denies any dental problems. Physical Exam Vitals & Measurements T:36.4C RR:20 BP:116/74 SpO2:94% HT:162.9cm WT:95.9kg WT:95.900kg(Dosing) BMI:36.14 BMI:36.14 kg/m2 Vitals:Last Updated 02/11/24 13:06 Date Temp BP Location Pulse RR SpO2 Pain 02/11/24 36.4 116/74 20 94 02/11/24 2 12/26/23 0 Height and Weight:Last Updated 02/11/24 13:06 Date BMI Wt(kg) Wt(lb) Method Ht(cm) (ft-in) Method 02/11/24 36.14 95.9 211 Standing Scale 162.9 5-4 12/26/23 36.14 95.9 211 Standing Scale 162.9 5-4 12/25/23 34.82 94.8 209 Standing Scale 165 5-5 General:Well-dressed, well-nourished. Normal mood and affect. Alert and oriented x3. HEENT:Head: Atraumatic, normocephalic. Eyes: Extraocular movements intact, pupils equal round and reactive to light, sclera normal. Ears: Ears grossly normal, TMs are clear normal light reflex.Nose: Nares are patent bilaterally. Throat: Oropharynx clear mucous membranes moist good dentition, one missing tooth right upper gum line.No evidence of infection, gum is healed, nontender to palpation. Uvula midline. Neck:Supple, no lymphadenopathy, nontender palpation, full range of motion. Cardiac:Regular rate and rhythm, normal S1, S2. No murmurs, rubs or gallops appreciated. Lungs:Clear to auscultation bilaterally. No adventitious sounds. No accessory muscle use. Abdomen:Soft, nontender, nondistended, normal bowel sounds heard in all 4 quadrants. Extremities: Focusing on the patient'sleftlower extremity: Difficulty arising due to pain Stiff-legged gait ValgusAlignment 1+DP and1+PT pulses Capillary refill less than 2 seconds Sensationintact to light touch Motor strength5/5: Knee flexion and extension/ Ankle plantarflexion and dorsiflexion/ ankle inversion and eversion/ Big toe extension Knee (left)ROM: 0/ 0/ 115 Ligament exam: Stable in full extension 1+ LCL laxity at 20 knee flexion PositiveLateral knee tenderness Diagnostic Results I reviewed x-rays form 03/2023 [facility] at [facility] whichshows severe left knee patellofemoral arthritis and lateral compartment arthritis of the left knee. Assessment/Plan 1.Left knee DJD Patient is scheduled for left total knee arthroplasty on February 12, [address] Fulton. Risks and complications of the procedure were explained to the patient and include but are not limited to infection, pain, bleeding, scarring, nerve and blood vessel damage, wound problems, weakness, stiffness, incomplete relief of symptoms, tendon or ligament injury, hardware failure, hardware loosening, wear, fracture blood clots, embolism, heart attack, stroke, and . Informed consent was obtained by Dr. Fulton today. She did have preadmission testing which she obtained a preoperativeCBC, BMP, PT, PTT, type and screen, hemoglobin A1c, chest x-ray and EKG. She also had a leg length film performed at that time as well. She will of preoperative clearance from her family physician which is scheduled for later this week. She does have a walker and a walking stick for use aftersurgery. We will place her on Eliquis 2.5 mg p.o. twice daily for DVT prophylaxis for 2 to 4 weeks after her procedure. Pain medications will beprescribed at the time ofdischarge from the hospital. She would like to attend home health initially after her procedure and then physical therapy as an outpatient here in our office after her 2-week follow-up appointment. Postoperative course was discussed. She understands and agrees with the plan. She was instructed on the usage of the CHG wipes. All questions were answered today and she knows to call with any further problems, questions or concerns. This chart was completed utilizing [employer] voice recognition software. Grammatical errors, random word insertions, pronoun errors, and in complete sentences are an occasional consequence of the system. Any questions or concerns about the content, text, or information contained within the body of this dictation should be addressed directly to the provider for clarification. Problem List/Past Medical History Ongoing Back pain Closed fracture of metatarsal of left foot Diabetes History of foot fracture Hyperlipidemia Hypertension Incomplete uterovaginal prolapse Left knee DJD Rash Reflux Seasonal allergies Tinea unguium Vitamin D deficiency Procedure/Surgical History Prosthetic total arthroplasty of right hip| Service Date: 2Colonoscopy| Service Date: 02/2019Endovenous laser ablation of varicose vein of lower limb| Service Date: 12/2018Shave biopsy and cauterization of skin| Service Date: 01/08/2018 Endoscopy| Service Date: 10/2014 D&C - Dilatation and curettage| Service Date: 2000Cesarean delivery| Service Date: 1983 Tooth extraction Medications Home acetaminophen(Tylenol 8 HR Arthritis Pain) ALPRAZolam(Xanax 0.5 mg oral tablet), 0.5 mg= 1 tab, PO, Daily, PRN aluminum hydroxide-magnesium trisilicate(Gaviscon), 2 tab, PO amoxicillin(amoxicillin 500 mg oral capsule), 2000 mg= 4 cap, PO, As indicated, 3 refills apixaban(Eliquis 2.5 mg oral tablet), 2.5 mg= 1 tab, PO, bid, 1 refills aspirin(aspirin 81 mg oral capsule), 2 tab biotin cetirizine(ZyrTEC 10 mg oral tablet), 10 mg= 1 tab, PO, Daily cholecalciferol ciclopirox topical(Penlac Nail Lacquer 8% topical solution), 1 appl, topical, Daily, 4 refills cyanocobalamin(Vitamin B12) ergocalciferol(Vitamin D2 50,000 intl units (1.25 mg) oral capsule), [address] Int_Unit= 1 cap, PO, q7days famotidine(famotidine 20 mg oral tablet) fluticasone nasal(Flonase 50 mcg/inh nasal spray), 1 spray, each nostril, Daily hydrocortisone topical(hydrocortisone 2.5% topical ointment), 1 appl, topical, bid, 1 refills hydrocortisone-iodoquinol topical(hydrocortisone-iodoquinol 1%-1% topical cream), 1 appl, topical, Daily, 3 refills indapamide(indapamide 1.25 mg oral tablet), 1.25 mg= 1 tab, PO, Daily nystatin topical(nystatin 100,000 units/g topical powder), See Instructions, 5 refills olmesartan(olmesartan 20 mg oral tablet) simvastatin(simvastatin 40 mg oral tablet), 40 mg= 1 tab, PO, qhs sodium hyaluronate(Gelsyn-3 16.8 mg/2 mL intra-articular solution), 16.8 mg, intra-articular, q7days sodium hyaluronate(Euflexxa 10 mg/mL intra-articular solution), 20 mg, intra- articular, q7days tavaborole topical(Kerydin 5% topical solution), 1 appl, topical, Daily, 6 refills Chlorahexidine 0.12% swish adn spi Allergies Allergy Not found in Searchstomach cramps, broccoli, coffee, Cats Ragweedsinus symptoms bananasstomach cramps eggsemesis, diarrhea, stomach cramps sulfa drugsRash Social History Never smoked cigarettes Denies any alcohol or recreational drug use. She lives with her spouse and will have help after surgery. Family History Atypical moles: Mother. Electronic Signature on File Electronically Reviewed/Signed by: Kadie Baptiste PA-C Author Signature Dt/Tm:02/11/2024 02:17PM Division of Sports Medicine Electronically Reviewed/Signed by: Michael Fulton MD Cosigner Signature Dt/Tm: 02/11/2024 03:46 PM Division [facility] Patient Care team information Care Team Personnel Name: MD Chip, Vita Schulz Position: Referring Member Role: Primary Care Provider Address: [facility] Internal Medicine [address] [address] [place] Care Team Related Persons Name: HOMERO VINES"
== END 2024-02-14 15:40 | disposition home health service (06) ==
LOC: ASU 09:01 → 3N 09:01